=== PATIENT | female | born 1940 | race Caucasian/White ===

== ENCOUNTER 2021-08-17 14:53 | Inpatient (IN) | payer MEDICARE ==
[~2021-08-17] VITALS: Ht 167.6 cm; Wt 2.3 kg
--- NOTE | ~2021-08-17 | PROC ---
[address] [address] PROCEDURE REPORT Name: IGOR RAMOS Room: [address] IN M.R.#: [id number] Admission: 08/17/21 Attend Phys: Wendy Carroll Discharge: 08/24/21 Date of : 42 Report #: [id number] THIS REPORT FOR: cc: Daisy Espinoza MD, Constance M. MD [facility],Medical Records Staff ~ For GI report, please see the Provation report in Perceptive 7 content. By: 0646Medical Records Staff [facility] /JJ
[~2021-08-17 14:53] MED LIST: ASPIR 8181 MG PO; LASIX 40 MG TAB40 M1 PO; LIPITOR20 MG PO; MACROBID 100 M100 M1 PO; OMEGA 3 1,0001 EACH PO; PREDNISONE 10 M10 MG PO; PROAIR HFA8.5 GM IH; PYRIDIUM200 MG PO; SYNTHROID; SYNTHROID125 MC1 PO; VENTOLIN17 GM INH; VERAPAMIL ER240 M1 PO; ZPAK PO; [UNRECOGNIZED DRUG - OTHER]
[2021-08-17 14:59] VITALS: BP 150/70
[2021-08-17 18:01] LABS: ABSOLUTE BASOPHILS 0.1 thou/uL (0.0-0.2); ABSOLUTE EOSINOPHILS 0.1 thou/uL (0.0-0.7); ABSOLUTE LYMPHOCYTES 1.8 thou/uL (0.8-5.3); ABSOLUTE MONOCYTES 0.5 thou/uL (0.0-1.2); ABSOLUTE NEUTROPHILS 7.8 thou/uL (1.6-8.1); BASOPHILS 1.3 %; EOSINOPHILS 0.6 %; HEMATOCRIT 28.1 % (37.0-47.0); HEMOGLOBIN 9.4 gm/dL (12.0-15.0); LYMPHOCYTES 17.5 %; MCH 27.6 pg (26.0-34.0); MCHC 33.5 g/dL (28.0-37.0); MCV 82.3 fL (80.0-100.0); MONOCYTES 4.7 %; MPV 6.6 fl. (7.2-11.1); NUCLEATED RBCS 0 /100WBC; PLATELET COUNT* 272 thou/uL (150-400); POLYS 75.9 %; RBC 3.42 mil/uL (4.20-5.00); RDW-CV 15.8 % (10.5-14.5); WBC 10.3 thou/uL (4.0-11.0)
[2021-08-17 18:10] LABS: CALCIUM 7.5 mg/dL (8.5-10.1); CREATININE 0.8 mg/dL (0.6-1.3); POTASSIUM 3.6 mmol/L (3.5-5.1)
[2021-08-17 18:19] LABS: URINE BILIRUBIN NEGATIVE (Negative); URINE BLOOD NEGATIVE (Negative); URINE CLARITY CLEAR; URINE COLOR YELLOW; URINE GLUCOSE-RANDOM NEGATIVE (Negative); URINE KETONES 1+ (Negative); URINE LEUKOCYTES NEGATIVE (Negative); URINE NITRITE NEGATIVE (Negative); URINE PROTEIN 1+ (Negative); URINE UROBILINOGEN 0.2 E.U./dl (0.2-1.0)
[2021-08-17 18:23] LABS: ALBUMIN 2.2 g/dL (3.4-5.0); TOTAL BILIRUBIN 0.8 mg/dL (<0.1-1.0); TOTAL PROTEIN 6.1 g/dL (6.4-8.2)
[2021-08-17 22:50] VITALS: BP 141/60
[2021-08-17 22:57] VITALS: BP 144/67
[2021-08-17] MEDS ORDERED: XARELTO20 MG PO (23:23)
[2021-08-18 04:47] VITALS: BP 180/55
[2021-08-18 08:00] VITALS: BP 166/68
--- NOTE | 2021-08-18 11:09 | EKG ---
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
[2021-08-18 12:53] VITALS: BP 146/56
--- NOTE | 2021-08-18 13:28 | 2DMMODE ---
[place] [address] 2 D/M-MODE ECHOCARDIOGRAM Name: IGOR RAMOS Room: [address] IN .R.#: [id number] Admission: 08/17/21 Attend Phys: Sher Peterson Discharge: Date of : 42 Date of Service: 08/18/21 1327 Report #: [id number] THIS REPORT FOR: cc: Daisy Espinoza MD, Constance M. MD Blick, David R. MD [facility] ~ APPROVED REPORT Study performed: 08/18/2021 10:54:46 EXAM: Comprehensive 2D, Doppler, and color-flow Echocardiogram Patient Location: Bedside BSA: 1.97 HR: 95 bpm BP: 166/68 mmHg Other Information Study Quality: Good Indications Cardiomegaly Fatigue 2D Dimensions IVSd: 22.58 (7-11mm) LVOT Diam: 18.58 (18-24mm) LVDd: 37.12 mm PWd: 12.30 (7-11mm) Ascending Ao: 28.47 (22-36mm) LVDs: 29.78 (25-40mm) Aortic Root: 33.66 mm Volumes Left Atrial Volume (Systole) LA ESV Index: 25.70 mL/m2 Aortic Valve AoV Peak Fransico.: 3.50 m/s AO Peak Gr.: 48.88 mmHg LVOT Max P.43 mmHg AO Mean Gr.: 29.50 mmHg LVOT Mean P.44 mmHg LVOT Max V: 1.27 m/s AO V2 VTI: 81.79 cm LVOT Mean V: 0.86 m/s FABIAN (VTI): 0.84 cm2 LVOT V1 VTI: 25.40 [place] [address] 2 D/M-MODE ECHOCARDIOGRAM Name: RAMOSIGOR Alvarez Room: [address] IN ..#: [id number] Admission: 08/17/21 Attend Phys: Sher Peterson Discharge: Date of : 42 Date of Service: 08/18/21 1327 Report #: [id number] E/A Ratio: 0.94 MV Decel. Time: 207.19 ms MV E Max Fransico.: 1.19 m/s MV PHT: 60.09 ms MVA (PHT): 3.66 cm2 TDI E/Lateral E': 14.88 E/Medial E': 17.00 Medial E' Fransico.: 0.07 m/s Lateral E' Fransico.: 0.08 m/s Pulmonary Valve PV Peak Fransico.: 1.13 m/s PV Peak Gr.: 5.09 mmHg Tricuspid Valve RAP Estimate: 10.00 mmHg TR Peak Gr.: 39.77 mmHg RVSP: 49.77 mmHg PA Pressure: 49.77 mmHg Left Ventricle The left ventricle is normal size. There is normal LV segmental wall motion. Moderate concentric left ventricular hypertrophy. Left ventricular systolic function is normal. The left ventricular ejection fraction is within the normal range. LVEF is 55-60%. Grade I - abnormal relaxation pattern. Right Ventricle The right ventricle is normal size. The right ventricular systolic function is normal. Atria The left atrium size is normal. The right atrium size is normal. Aortic Valve Aortic valve is calcified. No aortic regurgitation is present. Moderate aortic stenosis. Mitral Valve There is mitral annular calcification. The mitral valve is normal in structure. Trace mitral regurgitation. No evidence of mitral valve stenosis. Tricuspid Valve The tricuspid valve is normal in structure. [place] [address] 2 D/M-MODE ECHOCARDIOGRAM Name: IGOR RAMOS Room: [address]#: [id number] Admission: 08/17/21 Attend Phys: Sher Peterson Discharge: Date of : 42 Date of Service: 08/18/21 1327 Report #: [id number] Pulmonic Valve The pulmonary valve is normal in structure. Trace pulmonic regurgitation. Great Vessels The aortic root is normal in size. The IVC is dilated. Pericardium There is no pericardial effusion. <Conclusion> Moderate concentric left ventricular hypertrophy. LVEF is 55-60%. Moderate aortic stenosis. <ELECTRONICALLY SIGNED> By: Bc Tanner MD, FACC 08/18/211326 26 26 Bc Tanner MD, FACC /INF
[2021-08-18 17:30] VITALS: BP 120/48
[2021-08-18 21:45] VITALS: BP 129/64
[2021-08-19] VITALS (7 sets, daily range): BP systolic 128–149; BP diastolic 48–76
[2021-08-19 08:05] LABS: HEMATOCRIT 25.8 % (37.0-47.0); HEMOGLOBIN 8.7 gm/dL (12.0-15.0); MCH 27.5 pg (26.0-34.0); MCHC 33.7 g/dL (28.0-37.0); MCV 81.6 fL (80.0-100.0); MPV 6.9 fl. (7.2-11.1); RBC 3.16 mil/uL (4.20-5.00); WBC 7.7 thou/uL (4.0-11.0)
[2021-08-19 08:18] LABS: ALBUMIN 1.9 g/dL (3.4-5.0); CALCIUM 7.4 mg/dL (8.5-10.1); CREATININE 0.9 mg/dL (0.6-1.3); TOTAL BILIRUBIN 0.4 mg/dL (<0.1-1.0); TOTAL PROTEIN 5.7 g/dL (6.4-8.2)
[2021-08-19 08:21] LABS: POTASSIUM 2.9 mmol/L (3.5-5.1)
[2021-08-20 03:30] VITALS: BP 172/83
[2021-08-20 04:32] LABS: POTASSIUM 3.4 mmol/L (3.5-5.1)
[2021-08-20 08:00] VITALS: BP 156/78
[2021-08-20 12:00] VITALS: BP 140/68
[2021-08-20 16:00] VITALS: BP 133/65
[2021-08-20 18:43] LABS: INFLUENZA A ANTIGEN Negative (Negative); INFLUENZA B ANTIGEN Negative (Negative)
[2021-08-20 20:00] VITALS: BP 124/68
[2021-08-20 23:50] VITALS: BP 143/60
[2021-08-21 04:32] LABS: HEMATOCRIT 27.9 % (37.0-47.0); HEMOGLOBIN 9.3 gm/dL (12.0-15.0); MCH 27.2 pg (26.0-34.0); MCHC 33.2 g/dL (28.0-37.0); MPV 6.7 fl. (7.2-11.1); RBC 3.41 mil/uL (4.20-5.00); RDW-CV 15.7 % (10.5-14.5); WBC 7.6 thou/uL (4.0-11.0)
[2021-08-21 04:47] LABS: CALCIUM 8.2 mg/dL (8.5-10.1); MAGNESIUM 1.8 mg/dL (1.8-2.4); POTASSIUM 3.3 mmol/L (3.5-5.1)
[2021-08-21 05:47] VITALS: BP 150/61
[2021-08-21 08:00] VITALS: BP 151/73
[2021-08-21 11:39] LABS: % SATURATION 49 % (20-39); IRON 92 ug/dL (50-175)
[2021-08-21 12:10] VITALS: BP 122/56
[2021-08-21 16:28] VITALS: BP 115/59
[2021-08-21 20:00] VITALS: BP 126/62; BP 87/40
--- NOTE | 2021-08-21 20:07 | CON ---
[address] [address] CONSULTATION Name: IGOR RAMOS Room: [address] IN .R.#: [id number] Admission: 08/17/21 Attend Phys: Wendy Carroll Discharge: Date of : 42 Report #: [id number] THIS REPORT FOR: cc: Daisy Espinoza MD, Constance M. MD Vardakis, Gregory DO ~ cc: Daisy Espinoza MD DATE OF CONSULTATION: 08/21/2021 Please note at the time of this dictation, the patient was seen and physically examined by myself. REASON FOR CONSULTATION: Positive blood culture for Enterococcus faecalis and wanting to find the source. HISTORY OF PRESENT ILLNESS: This is a pleasant 80-year-old female who presented to the Emergency Room with having several days of general malaise and chills and some nausea in which she recently had a UTI and completed therapy for that. She states she has not had much of an appetite and she has been having loose stools along with nausea and vomiting. She states sometimes in the morning she will have some dry heaves. She denies any issues with acid reflux and need to take anything and when that occurs, she may take some Pepto-Bismol. She denies any bright red blood or any melanotic stool at this time. She states she did have EGD and colonoscopy, she believes at [facility] sometime ago. She does not recall her findings and we will need to get her records to further evaluate that. ALLERGIES: INCLUDE DEMEROL, CIPRO AND ACETAMINOPHEN. MEDICATIONS: From home include verapamil, Lipitor, Lasix, Synthroid, prednisone and Xarelto. PAST MEDICAL HISTORY: Radical neck melanoma, hypertension, hypothyroidism, history of a left leg DVT and on anticoagulant therapy, hyperlipidemia. PAST SURGICAL HISTORY: Radical neck, hysterectomy. FAMILY HISTORY: Negative for any GI or female cancers. SOCIAL HISTORY: Denies any alcohol, tobacco or illegal drug use. REVIEW OF SYSTEMS: Twelve-point review of systems is essentially negative except what [place] [address] CONSULTATION Name: IGOR RAMOS Room: [address] IN [facility]#: [id number] Admission: 08/17/21 Attend Phys: Wendy Carroll Discharge: Date of : 41 Report #: [id number] PHYSICAL EXAMINATION: VITAL SIGNS: Temperature 37.4, pulse 82, respirations 18, blood pressure 151/73. HEART: Regular rate and rhythm. LUNGS: Diminished, but clear. ABDOMEN: Soft, positive bowel sounds in all 4 quadrants with no masses or tenderness noted. LABORATORY DATA: Hemoglobin is 9.3, white count is 7.6, platelets 343. GFR is 53. CT of the abdomen and pelvis essentially negative for GI. IMPRESSION: 1. Positive blood cultures for Enterococcus faecalis. 2. Loose stools. 3. Anemia, chronic likely. 4. Anticoagulant therapy, Xarelto secondary to a left deep venous thrombosis in 2019. 5. Recent urinary tract infection treatment. 6. Chronic kidney disease. PLAN: 1. Obtain records from [facility]. 2. Labs, ferritin, B12, iron studies and a soluble transferrin receptor. 3. We will check with hospitalist in regards to possibly holding her Xarelto for endoscopic evaluation. 4. Further recommendations to be made once Dr. Hanson sees the patient later today. Thank you for allowing us to participate in this patient's care. Please do not hesitate to call with any questions regarding this consult. <ELECTRONICALLY SIGNED> By: Spike aHnson DO 08/21/212006 6 0929Spike Hanson DO /nt
[2021-08-22] VITALS (15 sets, daily range): BP systolic 128–169; BP diastolic 60–76
[2021-08-22 05:03] LABS: ALBUMIN 2.2 g/dL (3.4-5.0); CALCIUM 8.1 mg/dL (8.5-10.1); CREATININE 1.3 mg/dL (0.6-1.3); POTASSIUM 3.5 mmol/L (3.5-5.1); TOTAL BILIRUBIN 0.5 mg/dL (<0.1-1.0)
[2021-08-22 05:37] LABS: HEMATOCRIT 28.1 % (37.0-47.0); HEMOGLOBIN 9.3 gm/dL (12.0-15.0); MCH 27.1 pg (26.0-34.0); MCHC 32.9 g/dL (28.0-37.0); MCV 82.4 fL (80.0-100.0); MPV 7.2 fl. (7.2-11.1); NUCLEATED RBCS 0 /100WBC; PLATELET COUNT* 397 thou/uL (150-400); RBC 3.41 mil/uL (4.20-5.00); RDW-CV 16.3 % (10.5-14.5); WBC 9.9 thou/uL (4.0-11.0)
[2021-08-22 07:18] LABS: ESR (SEDRATE) 44 mm/hr (0-30)
[2021-08-22 07:21] LABS: ABSOLUTE LYMPHOCYTES 1.3 thou/uL (0.8-5.3); ABSOLUTE MONOCYTES 0.6 thou/uL (0.0-1.2); PLATELET ESTIMATE ADEQUATE
[2021-08-22 07:22] LABS: ANISOCYTOSIS 1+; POIKILOCYTOSIS 1+
--- NOTE | 2021-08-22 16:04 | TEE ---
[place] [address] TRANSESOPHAGEAL ECHOCARDIOGRAM Name: IGOR RAMOS Room: [address] IN [facility]#: [id number] Admission: 08/17/21 Attend Phys: Sher Peterson Discharge: Date of : 42 Date of Service: 08/22/21 1604 Report #: [id number] THIS REPORT FOR: cc: Daisy Espinoza MD, Constance M. MD Liston, Michael J. MD [facility] ~ ADDENDUM APPROVED REPORT Study performed: 08/22/2021 10:23:25 EXAM: Comprehensive 2D, Doppler, and color-flow Echocardiogram Patient Location: In-Patient Room #: [employer] Status: routine BSA: 1.97 HR: 83 bpm BP: 166/76 mmHg Rhythm: NSR Other Information Study Quality: Good Indications BACTEREMIA Echo Enhancing Agent Indication: Rule out Shunt Agent(s) / Amount(s) Used: Agitated Saline 10 cc Procedure After obtaining informed consent, patient underwent transesophageal echo in the [employer]. Type of Sedation : Conscious Sedation Sedation was administered by Zee Ghosh RN. Sedation start time: 1025 Case end Time: 1035 Sedation was achieved intravenously with: Versed (3) Fentanyl (75) Transesophageal probe was inserted and advanced into esophagus without difficulty by Jose Melissa MD, [facility]. Echo enhancement indication: R/O Septal defect. Echo enhancement agent administered: Agitated Saline The AGGIE was performed without complications. Throughout the procedure, the blood pressure, pulse oximetry, [place] [address] TRANSESOPHAGEAL ECHOCARDIOGRAM Name: IGOR RAMOS Room: [address]#: [id number] Admission: 08/17/21 Attend Phys: Sher Peterson Discharge: Date of : 42 Date of Service: 08/22/21 1604 Report #: [id number] rhythm, and rate were monitored. The patient tolerated the procedure without adverse effects. Recovery from conscious sedation was uneventful and vital signs were stable. Left Ventricle The left ventricle is normal size. There is normal LV segmental wall motion. There is normal left ventricular wall thickness. Left ventricular systolic function is normal. LVEF is 55-60%. Right Ventricle The right ventricle is normal size. The right ventricular systolic function is normal. Atria The left atrium size is normal. No thrombus is visualized in the left atrium or appendage. The interatrial septum is intact with no evidence for an atrial septal defect. The right atrium size is normal. Aortic Valve Moderate aortic valve sclerosis. No aortic regurgitation is present. The aortic valve appears at least mildly stenotic. Mitral Valve The mitral valve is normal in structure. Mild mitral regurgitation. No evidence of mitral valve stenosis. Tricuspid Valve Tricuspid valve is not well visualized. Pulmonic Valve Pulmonic valve is not well visualized. Great Vessels The aortic root is normal in size. Pericardium There is no pericardial effusion. <Conclusion> The left ventricle is normal size. There is normal left ventricular wall thickness. Left ventricular systolic function is normal. LVEF is 55-60%. There is normal [place] [address] TRANSESOPHAGEAL ECHOCARDIOGRAM Name: IGOR RAMOS Room: [address] IN [facility].#: [id number] Admission: 08/17/21 Attend Phys: Sher Peterson Discharge: Date of : 42 Date of Service: 08/22/211603 Report #: [id number] Moderate aortic valve sclerosis. The aortic valve appears at least mildly stenotic. Mild mitral regurgitation. The interatrial septum is intact with no evidence for an atrial septal defect. There is no evidence of mitral or aortic valvular vegetations. <ELECTRONICALLY SIGNED> By: Jose Melissa MD, FACC 08/22/211603 03 03 Jose Melissa MD, FACC /INF
[2021-08-23 07:40] VITALS: BP 170/75
[2021-08-23 13:33] VITALS: BP 120/57
[2021-08-23 16:00] VITALS: BP 127/54
[2021-08-23 20:00] VITALS: BP 134/72
[2021-08-23 23:30] VITALS: BP 144/65
[2021-08-24 09:17] VITALS: BP 157/55
[2021-08-24 12:00] VITALS: BP 133/55
[2021-08-24 14:00] VITALS: BP 133/55
[2021-08-24 16:58] LABS: ABSOLUTE BASOPHILS 0.1 thou/uL (0.0-0.2); ABSOLUTE LYMPHOCYTES 2.5 thou/uL (0.8-5.3); ABSOLUTE MONOCYTES 0.4 thou/uL (0.0-1.2); ABSOLUTE NEUTROPHILS 7.8 thou/uL (1.6-8.1); BASOPHILS 0.6 %; EOSINOPHILS 0.1 %; HEMATOCRIT 30.7 % (37.0-47.0); HEMOGLOBIN 10.2 gm/dL (12.0-15.0); MCH 27.4 pg (26.0-34.0); MCHC 33.3 g/dL (28.0-37.0); MCV 82.2 fL (80.0-100.0); MONOCYTES 3.6 %; MPV 6.7 fl. (7.2-11.1); NUCLEATED RBCS 0 /100WBC; PLATELET COUNT* 451 thou/uL (150-400); POLYS 72.7 %; RBC 3.73 mil/uL (4.20-5.00); RDW-CV 16.4 % (10.5-14.5); WBC 10.8 thou/uL (4.0-11.0)
[2021-08-24 17:14] LABS: ALBUMIN 2.4 g/dL (3.4-5.0); CALCIUM 8.1 mg/dL (8.5-10.1); CREATININE 1.4 mg/dL (0.6-1.3); POTASSIUM 3.6 mmol/L (3.5-5.1); TOTAL BILIRUBIN 0.4 mg/dL (<0.1-1.0); TOTAL PROTEIN 6.3 g/dL (6.4-8.2)
[2021-08-24 17:37] VITALS: BP 133/55
--- NOTE | 2021-08-28 14:06 | PATH ---
[address] [address] PATHOLOGY RPT PROCEDURE Name: IGOR RAMOS Room: [address] IN .R.#: [id number] Admission: 08/17/21 Date of : 42 Discharge: 08/24/21 Report #: [id number] Path Case #: [id number] [facility] Accession Number: [id number] . 01 Material submitted: . PART A: small bowel - SMALL BOWEL BIOPSIES- ANEMIA PART B: colon - POLYP- PROXIMAL ASCENDING COLON. Modifiers: proximal, ascending PART C: colon - PROXIMAL TRANSVERSE COLON POLYPS. Modifiers: proximal, transverse PART D: colon - MID TRANSVERSE COLON POLYPS. Modifiers: mid, transverse PART E: colon - DISTAL TRANSVERSE COLON POLYPS. Modifiers: distal, transverse PART F: sigmoid colon - SIGMOID POLYP . 01 Clinical history: . EGD AND COLONOSCOPY FEVER, [place], ELEVATED TROPONIN . 02 Diagnosis: A. Small bowel biopsies: - Normal small intestinal mucosa. . B. Proximal ascending colon polyp: - Tubular adenoma, negative for high-grade dysplasia. . C. Proximal transverse colon polyps: - Multiple tubular adenomas, negative for high-grade dysplasia. . D. Mid transverse colon polyps: - Two tubular adenomas, negative for high-grade dysplasia. . E. Distal transverse colon polyps: - Two tubular adenomas, negative for high-grade dysplasia. . F. Sigmoid polyp: - Tubular adenoma, negative for high-grade dysplasia. . (JOSIAS:shilo; 08/25/2021) MBR 08/25/2021 1246 Local . 02 Electronically signed: . Brandon Balderas MD, Pathologist NPI- [id number] . 01 Gross description: . A. The specimen is submitted in formalin, labeled "Igor Ramos, small bowel biopsies-anemia". Received are 3 segments of [place] [address] PATHOLOGY RPT PROCEDURE Name: IGOR RAMOS Alvarez Room: [address]#: [id number] Admission: 08/17/21 Date of : 41 Discharge: 08/24/21 Report #: [id number] Path Case #: [id number] in size from 0.3 to 0.4 cm in maximum dimensions. The specimen is submitted entirely in cassette A1. . B. The specimen is submitted in formalin, labeled "Igor Ramos, polyp-proximal ascending colon". Received are 3 segments of pale mack tissue ranging in size from 0.2 to 0.4 cm in maximum dimensions. The specimen is submitted entirely in cassette B1. . C. The specimen is submitted in formalin, labeled "Igor Ramos, proximal transverse colon polyps". Received are multiple segments of pale mack tissue ranging in size from 0.2 to 0.5 cm in maximum dimensions. The specimen is submitted entirely in cassette C1. . D. The specimen is submitted in formalin, labeled "Igor Ramos, mid transverse colon polyps". Received are 2 segments of pale mack tissue measuring 0.3 and 0.5 cm in maximum dimensions. The specimen is submitted entirely in cassette D1. . E. The specimen is submitted in formalin, labeled "Igor Ramos, distal transverse colon polyps". Received are 2 segments of pale mack tissue measuring 0.4 and 0.7 cm in maximum dimensions. The surgical margin of the largest segment is inked and the specimen is bisected. The specimen is submitted entirely in cassette E1. . F. The specimen is received in formalin, labeled "Igor Ramos, sigmoid polyp". Received is a single segment of pale mack, polypoid tissue measuring 0.7 cm in maximum dimensions. The surgical margin is inked. The specimen is bisected and submitted entirely in cassette F1. ([facility]; 08/24/2021) NRI/NRI 08/24/2021 [facility] Local . 02 Pathologist provided ICD-10: D12.2, D12.3, D12.5 . 02 CPT . 388124, 396443, 446956, 110369, 766994, 394145 Specimen Comment: A courtesy copy of this report has been sent to [phone] Specimen Comment: [phone], Specimen Comment: Report sent to , DR LYNCH / DR HANSEN Specimen Comment: A duplicate report has been generated due to demographic updates. Performed at: [address], [place], [place] [id number] MD Juan Pablo Martinez MD Phone: [phone] Performed at: 02 [facility] [address], [place], [place] [id number] [place] [address] PATHOLOGY RPT PROCEDURE Name: IGOR RAMOS Room: [address] IN M.R.#: [id number] Admission: 08/17/21 Date of : 42 Discharge: 08/24/21 Report #: [id number] Path Case #: [id number] MD Brandon Balderas MD Phone: [phone]
== END 2021-08-24 19:14 | disposition home health service (06) | DRG 872 ==
LOC: M.ERS 14:53 → M.TBA-ER 21:05 → M.2W 21:05
PROVIDERS: Emergency Medicine; Internal Medicine; Internal Medicine Gastroenterology; Nurse Practitioner Adult Health; ADMIT Internal Medicine; ATTEND Internal Medicine
DX: A41.81 Sepsis due to Enterococcus (principal); E44.1 Mild protein-calorie malnutrition; Z68.1 Body mass index [BMI] 19.9 or less, adult; I50.32 Chronic diastolic (congestive) heart failure; N17.9 Acute kidney failure, unspecified; I13.0 Hypertensive heart and chronic kidney disease with heart failure and stage 1 through stage 4 chronic kidney disease, or unspecified chronic kidney disease; E89.0 Postprocedural hypothyroidism; E78.5 Hyperlipidemia, unspecified; D64.9 Anemia, unspecified; N18.9 Chronic kidney disease, unspecified; K44.9 Diaphragmatic hernia without obstruction or gangrene; K63.5 Polyp of colon; Z90.710 Acquired absence of both cervix and uterus; Z88.1 Allergy status to other antibiotic agents; Z88.8 Allergy status to other drugs, medicaments and biological substances; Z86.718 Personal history of other venous thrombosis and embolism; Z79.01 Long term (current) use of anticoagulants; Z20.822 Contact with and (suspected) exposure to COVID-19

== ENCOUNTER 2021-11-05 14:20 | Inpatient (IN) | payer MEDICARE ==
[~2021-11-05] VITALS: Ht 170.2 cm; Wt 78.6 kg
--- NOTE | ~2021-11-05 | CON ---
[address] [address] CONSULTATION Name: IGOR RAMOS Room: [place] [address] ADM IN .R.#: [id number] Admission: 11/05/21 Attend Phys: Helena Rubalcava Discharge: Date of : 41 Report #: [id number] THIS REPORT FOR: cc: Daisy Espinoza MD, Constance M. MD Namin, Farid M. MD ~ DATE OF CONSULTATION: 11/06/2021 REQUESTING PHYSICIAN: Dr. Jasmin Lee. REASON FOR CONSULTATION: Weakness and anemia. HISTORY OF PRESENT ILLNESS: This is a 80-year-old female with history of endoscopic evaluation by Dr. Hanson back in 07/2020. The patient reports that she has been very weak and had decreased appetite, which prompted her to come to the hospital. Upon her ER visit, she was found to have hemoglobin of 6.9. Her baseline hemoglobin from July was 9. She has received 1 unit of packed RBC and her hemoglobin is 7.3. The patient also had CT of abdomen and pelvis, which showed trace of left upper pelvic free fluid and trace of fluid in the paracolic gutter bilaterally. There is mild bibasilar pulmonary atelectasis and dense aortic valve calcification noted in this study. PAST MEDICAL HISTORY: Significant for a history of UTI and sepsis. He has history of melanoma, thyroidectomy, hypertension, dyslipidemia. ALLERGIES: SIGNIFICANT TO TYLENOL, CIPROFLOXACIN, AND MEPERIDINE. MEDICATIONS: Please refer to PEGGY. PHYSICAL EXAMINATION: VITAL SIGNS: Reveals blood pressure of 120/77, respirations 16, pulse 89, temperature 36.8. LUNGS: Clear. CARDIOVASCULAR: Regular. ABDOMEN: Soft, nontender, nondistended. Bowel sounds are positive. NEUROLOGIC: The patient is alert and oriented x3. There is no focal neurologic deficit. LABORATORY DATA: Reveal WBC of 9.1, hemoglobin of 7.3, platelet is 338. Sodium 130, potassium 5.2, BUN is 46, creatinine 4.6, glucose 176. IMAGING: As discussed above. ASSESSMENT AND PLAN: The patient with recent endoscopic evaluation found to be anemic and has dropped her hemoglobin by 3 grams in 3 months[place] [address] CONSULTATION Name: IGOR RAMOS Room: [address] IN [facility]#: [id number] Admission: 11/05/21 Attend Phys: Helena Rubalcava Discharge: Date of : 41 Report #: [id number] iron studies and check B12 and folic acid. If there is evidence of iron deficiency, we will consider capsule endoscopy. We will continue monitoring her H and H and make further recommendation. By: 1659 2004Kathy Cortez MD /nt
[~2021-11-05 14:20] MED LIST changes: +XARELTO20 MG PO
[2021-11-05 14:40] VITALS: BP 140/93
[2021-11-05 18:16] LABS: HEMATOCRIT 20.8 % (37.0-47.0); MCH 25.3 pg (26.0-34.0); MCHC 33.1 g/dL (28.0-37.0); MCV 76.3 fL (80.0-100.0); MPV 6.2 fl. (7.2-11.1); NUCLEATED RBCS 0 /100WBC; PLATELET COUNT* 460 thou/uL (150-400); RBC 2.72 mil/uL (4.20-5.00); RDW-CV 18.8 % (10.5-14.5); WBC 13.3 thou/uL (4.0-11.0)
[2021-11-05 18:21] LABS: CALCIUM 7.6 mg/dL (8.5-10.1); CREATININE 4.9 mg/dL (0.6-1.3)
[2021-11-05 18:23] LABS: HEMOGLOBIN 6.9 gm/dL (12.0-15.0); POTASSIUM 6.1 mmol/L (3.5-5.1)
[2021-11-05 18:32] LABS: TOTAL BILIRUBIN 0.7 mg/dL (<0.1-1.0); TOTAL PROTEIN 6.7 g/dL (6.4-8.2)
[2021-11-05 18:39] LABS: URINE BILIRUBIN NEGATIVE (Negative); URINE BLOOD 3+ (Negative); URINE CLARITY SL CLOUDY; URINE COLOR YELLOW; URINE GLUCOSE-RANDOM NEGATIVE (Negative); URINE KETONES TRACE (Negative); URINE NITRITE-REFLEX NEGATIVE (Negative); URINE PROTEIN 2+ (Negative); URINE SPECIFIC GRAVITY 1.015 (1.005-1.030); URINE UROBILINOGEN 0.2 E.U./dl (0.2-1.0)
[2021-11-05 18:42] LABS: URINE LEUKOCYTES-REFLEX 2+ (Negative)
[2021-11-05 18:47] LABS: BACTERIA-REFLEX >30 Many /HPF (None Seen); HYALINE CASTS 0-3 Few /LPF (None Seen); URINE WBC-REFLEX >25 Many /HPF (0-5)
[2021-11-05 18:48] LABS: CRYSTALS None Seen /LPF (None Seen); MUCUS None Seen strn/LPF (None Seen); SQUAMOUS 0-3 Few /LPF (0-3); URINE RBC 3-10 Few /HPF (0-2); YEAST-REFLEX Present (None Seen)
[2021-11-05 18:55] LABS: ABSOLUTE LYMPHOCYTES 0.7 thou/uL (0.8-5.3); ABSOLUTE MONOCYTES 0.7 thou/uL (0.0-1.2); PLATELET ESTIMATE ADEQUATE
[2021-11-05 18:57] LABS: ANISOCYTOSIS 1+; HYPOCHROMASIA 1+; MICROCYTES 1+
[2021-11-05 19:01] LABS: INFLUENZA A ANTIGEN Negative (Negative); INFLUENZA B ANTIGEN Negative (Negative)
[2021-11-05 21:21] LABS: CALCIUM 6.6 mg/dL (8.5-10.1); CREATININE 4.6 mg/dL (0.6-1.3); POTASSIUM 5.2 mmol/L (3.5-5.1)
[2021-11-05 23:19] VITALS: BP 132/62
[2021-11-06 04:00] VITALS: BP 126/59
[2021-11-06 06:43] LABS: HEMATOCRIT 22.2 % (37.0-47.0); HEMOGLOBIN 7.3 gm/dL (12.0-15.0); MCH 26.3 pg (26.0-34.0); MCHC 32.9 g/dL (28.0-37.0); MCV 79.8 fL (80.0-100.0); RBC 2.78 mil/uL (4.20-5.00); RDW-CV 18.9 % (10.5-14.5); WBC 9.1 thou/uL (4.0-11.0)
[2021-11-06 08:00] VITALS: BP 120/77
--- NOTE | 2021-11-06 12:43 | NUR ---
Pt is admitted to the hospital on 11/05/21 with Anemia and Acute Renal Failure. Called spouse - Edwin at: [phone] to complete assessment. Pt lives with spouse in a house with no steps to enter. Pt does have a roller walker. Pt is currently active with [facility] for nursing - called and confirmed this and faxed them clinicals. Pt fills her prescriptions at the [address], and has seen her PCP with in the last 3 months. Pt was previously independent in ADL's and has no hx of SNF. In team meeting - doctor was to order therapies to see if pt can return home with HH or will need SNF. CM to continue to follow for discharge planning.
--- NOTE | 2021-11-06 13:19 | EKG ---
[place] [address] ELECTROCARDIOGRAM REPORT Name: IGOR RAMOS Room: [place] [address] ADM IN [facility]#: [id number] Admission: 11/05/21 Attend Phys: Jasmin Lee Discharge: Date of : 42 Date of Service: 11/05/21 180 Report #: [id number] THIS REPORT FOR: //name// [facility] ED Test Date: 2021-11-05 Test Time: 18:06:07 Pat Name: IGOR RAMOS Department: Room: [facility] Gender: F [employer]: : 1940 Requested By: Jean-Claude Lizama Order Number: [id number] MD: Everardo Randle Measurements Intervals [place] Rate: 93 P: 55 MD: 201 QRS: -30 QRSD: 84 T: 33 QT: 376 QTc: 468 Interpretive Statements Sinus rhythm Probable left atrial enlargement Left axis deviation Abnormal R-wave progression, early transition Compared to ECG 08/17/2021 17:31:40 No significant changes Electronically Signed On 11-06-2021 13:18:54 PATIENT ACCOUNTING REPRESENTATIVE by Everardo Randle [email or web address] <ELECTRONICALLY SIGNED> By: Everardo Randle MD, [facility] 11/06/21 1318 1806 1806 Everardo Randle MD, [facility] /EPI
[2021-11-06 16:00] VITALS: BP 120/77
[2021-11-07] VITALS (9 sets, daily range): BP systolic 121–153; BP diastolic 61–74
--- NOTE | 2021-11-07 01:09 | NUR ---
PT ARRIVED TO FLOOR AT 0045 BY BED. ASSUMED CARE AND RECEIVED REPORT FROM HAND SEWER. PT IS ALERT AND ORIENTED. FALL PRECAUTIONS IN PLACE. BED ALARM ON. IV INFUSING 70ML/HR OF NS AT THIS TIME. CARDIAC MONITORING IMPLEMENTED AND TRACING SINUS RHYTHM. SCD'S ON. NOTED AREAS OF DRY/CRACKED/RED SKIN ON B/L SHINS AND ANKLES. MONTESINOS TO DEPENDENT DRAINAGE, STAT LOCK IN PLACE. PT VOICES NO COMPLAINTS AT THIS TIME, JUST REPORTS BEING COLD AND TIRED. BLANKETS PROVIDED AND IS NOW RESTING COMFORTABLY. CALL LIGHT WITHIN REACH AND VERBALIZED UNDERSTANDING OF USE. WILL CONTINUE TO MONITOR.
[2021-11-07 05:13] LABS: ABSOLUTE BASOPHILS 0.1 thou/uL (0.0-0.2); ABSOLUTE EOSINOPHILS 0.2 thou/uL (0.0-0.7); ABSOLUTE LYMPHOCYTES 1.2 thou/uL (0.8-5.3); ABSOLUTE MONOCYTES 0.9 thou/uL (0.0-1.2); ABSOLUTE NEUTROPHILS 6.5 thou/uL (1.6-8.1); BASOPHILS 0.6 %; EOSINOPHILS 2.3 %; HEMATOCRIT 21.8 % (37.0-47.0); LYMPHOCYTES 13.9 %; MCHC 32.2 g/dL (28.0-37.0); MCV 80.7 fL (80.0-100.0); MONOCYTES 9.7 %; NUCLEATED RBCS 0 /100WBC; PLATELET COUNT* 361 thou/uL (150-400); POLYS 73.5 %; WBC 8.8 thou/uL (4.0-11.0)
[2021-11-07 05:29] LABS: CALCIUM 6.6 mg/dL (8.5-10.1); CREATININE 4.7 mg/dL (0.6-1.3); POTASSIUM 4.5 mmol/L (3.5-5.1)
--- NOTE | 2021-11-07 13:10 | NUR ---
PLAN OF CARE: PHYSICIAN INFORMS THAT THE PT WILL LIKELY NEED IV ABT'S AT D/C, WELL POSSIBLE SNF PLACEMENT. CM TO DISCUS THIS WITH THE PT AND HER SPOUSE. CM WILL REMAIN AVAILABLE TO ASSIST AND FOLLOW NEEDED.
[2021-11-08 02:24] VITALS: BP 162/64
[2021-11-08 04:45] LABS: HEMATOCRIT 22.5 % (37.0-47.0); HEMOGLOBIN 7.2 gm/dL (12.0-15.0); MCHC 32.2 g/dL (28.0-37.0); MCV 80.8 fL (80.0-100.0); MPV 6.1 fl. (7.2-11.1); NUCLEATED RBCS 0 /100WBC; PLATELET COUNT* 417 thou/uL (150-400); RBC 2.78 mil/uL (4.20-5.00); RDW-CV 18.9 % (10.5-14.5); WBC 10.2 thou/uL (4.0-11.0)
--- NOTE | 2021-11-08 05:02 | NUR ---
PT A&OX2 (SELF & TIME), CONFUSED ABOUT LOCATION AND SITUATION, VSS ON ROOM AIR, IV FLUIDS INFUSING ORDERED, URINARY CATHETER IN PLACE, REPOSITIONED Q2H. NO CO PAIN OR DISCOMFORT. PT SLEEPING WELL, WILL CONTINUE TO MONITOR.
[2021-11-08 05:35] LABS: ALBUMIN 1.5 g/dL (3.4-5.0); CALCIUM 6.9 mg/dL (8.5-10.1); CREATININE 4.5 mg/dL (0.6-1.3); POTASSIUM 4.2 mmol/L (3.5-5.1); TOTAL BILIRUBIN 0.2 mg/dL (<0.1-1.0); TOTAL PROTEIN 5.7 g/dL (6.4-8.2)
[2021-11-08 06:42] VITALS: BP 134/72
[2021-11-08 07:44] LABS: ABSOLUTE EOSINOPHILS 0.2 thou/uL (0.0-0.7); ABSOLUTE LYMPHOCYTES 1.2 thou/uL (0.8-5.3); ABSOLUTE MONOCYTES 0.5 thou/uL (0.0-1.2); ABSOLUTE NEUTROPHILS 8.3 thou/uL (1.6-8.1); METAMYELOCYTES 1 %; MYELOCYTES 3 %
[2021-11-08 07:45] LABS: ANISOCYTOSIS 1+; HYPOCHROMASIA 1+; PLATELET ESTIMATE ADEQUATE
[2021-11-08 08:47] VITALS: BP 168/72
[2021-11-08 11:08] LABS: % SATURATION 14 % (20-39); IRON 19 ug/dL (50-175)
[2021-11-08 11:52] VITALS: BP 164/75
--- NOTE | 2021-11-08 16:13 | NUR ---
PLAN OF CARE: CM SPOKE TO THE PT AND HER SPOUSE TO DISCUSS CM D/C PLANNING, AND POSSIBLE SNF PLACEMENT FOR THE PT. BOTH ARE IN AGREEMENT, AND PT'S SPOUSE INFORMS THAT HE IS OPEN TO HAVING SNF REFERRAL FAXED TO [facility] SINCE THEY RESIDE IN [place]. CM FAXED REFERRAL AND AWAITING RETURN CALL. CM WILL REMAIN AVAILABLE TO ASSIST AND FOLLOW NEEDED.
[2021-11-08 16:39] VITALS: BP 159/73
[2021-11-08 21:07] VITALS: BP 118/88
[2021-11-09] VITALS (15 sets, daily range): BP systolic 135–173; BP diastolic 64–93
[2021-11-09 04:05] LABS: HEMATOCRIT 21.6 % (37.0-47.0); MCH 26.4 pg (26.0-34.0); MCHC 32.4 g/dL (28.0-37.0); MCV 81.4 fL (80.0-100.0); MPV 5.8 fl. (7.2-11.1); RBC 2.66 mil/uL (4.20-5.00); RDW-CV 19.1 % (10.5-14.5); WBC 9.2 thou/uL (4.0-11.0)
[2021-11-09 04:28] LABS: CALCIUM 6.9 mg/dL (8.5-10.1); CREATININE 4.4 mg/dL (0.6-1.3); POTASSIUM 4.4 mmol/L (3.5-5.1)
--- NOTE | 2021-11-09 06:32 | NUR ---
PT LAB BLOOD GLUCOSE THIS MORNING WAS 64. PT IS NPO FOR POSSIBLE AGGIE. 12.5 GM D50 IVP ORDERED AND ADMINISTERED PER PROTOCOL. POC BLOOD GLUCOSE RECHECK AT 0616 IS 88.
--- NOTE | 2021-11-09 15:14 | NUR ---
Pt has been referred to SNF - as she will need 4 weeks of IV antibiotics (Ampicillan). Pt was referred to [facility]. Per doctor pt will be here through the weekend. Followed up on referral with [facility] in admissions. She is to speak with DON - as Ampicillan is typically given every 4 or 6 hours and is typically expensive. CM to continue to follow for discharge planning.
--- NOTE | 2021-11-09 17:14 | TEE ---
[place] [address] TRANSESOPHAGEAL ECHOCARDIOGRAM Name: IGOR RAMOS Room: [address] IN [facility]#: [id number] Admission: 11/05/21 Attend Phys: Jasmin Lee Discharge: Date of : 42 Date of Service: 11/09/21 1714 Report #: [id number] THIS REPORT FOR: cc: Daisy Espinoza MD, Constance M. MD Liston, Michael J. MD [facility] ~ APPROVED REPORT Study performed: 11/09/2021 08:55:25 EXAM: Transesophageal Echocardiogram Patient Location: In-Patient Room #: [facility] Status: routine BSA: 1.90 HR: 96 bpm BP: 162/75 mmHg Rhythm: NSR Indications bacteremia Echo Enhancing Agent Indication: Rule out Shunt Agent(s) / Amount(s) Used: Agitated Saline 10 cc Procedure After obtaining informed consent, patient underwent transesophageal echo in the [employer]. Type of Sedation : Conscious Sedation Sedation was administered by Zee Ghosh RN. Sedation start time: 902 Case end Time: 914 Sedation was achieved intravenously with: Versed (3) Fentanyl (75) Transesophageal probe was inserted and advanced into esophagus without difficulty by Jose Melissa MD, FACC. Echo enhancement indication: R/O Septal defect. Echo enhancement agent administered: Agitated Saline The AGGIE was performed without complications. Throughout the procedure, the blood pressure, pulse oximetry, cardiac rhythm, and rate were monitored. The patient tolerated the procedure without adverse effects. Recovery from conscious sedation was uneventful and vital signs were stable. [address] [address] TRANSESOPHAGEAL ECHOCARDIOGRAM Name: IGOR RAMOS Room: [address] IN [facility]#: [id number] Admission: 11/05/21 Attend Phys: Jasmin Lee Discharge: Date of : 42 Date of Service: 11/09/21 1714 Report #: [id number] Left Ventricle The left ventricle is normal size. There is normal LV segmental wall motion. There is normal left ventricular wall thickness. Left ventricular systolic function is normal. LVEF is 55-60%. Right Ventricle The right ventricle is normal size. The right ventricular systolic function is normal. Atria The left atrium size is normal. No thrombus is visualized in the left atrium or appendage. The interatrial septum is intact with no evidence for an atrial septal defect. The right atrium size is normal. Aortic Valve Moderate aortic valve sclerosis. No aortic regurgitation is present. At least mild aortic stenosis Mitral Valve The mitral valve is normal in structure. Mild mitral regurgitation. No evidence of mitral valve stenosis. Tricuspid Valve Tricuspid valve is not well visualized. Pulmonic Valve Pulmonic valve is not well visualized. Great Vessels The aortic root is normal in size. Pericardium There is no pericardial effusion. <Conclusion> The left ventricle is normal size. There is normal left ventricular wall thickness. Left ventricular systolic function is normal. LVEF is 55-60%. The interatrial septum is intact with no evidence for an atrial septal defect. No thrombus is visualized in the left atrium or appendage. Moderate aortic valve sclerosis. At least mild [place] [address] TRANSESOPHAGEAL ECHOCARDIOGRAM Name: IGOR RAMOS Alvarez Room: [address] IN [facility].#: [id number] Admission: 11/05/21 Attend Phys: Jasmin Lee Discharge: Date of : 42 Date of Service: 11/09/211713 Report #: [id number] Mild mitral regurgitation. No evidence of valvular vegetation seen <ELECTRONICALLY SIGNED> By: Jose Melissa MD, FACC 11/09/211713 13 13 Jose Melissa MD, FACC /INF
[2021-11-10 03:05] VITALS: BP 116/98
[2021-11-10 04:15] LABS: HEMATOCRIT 22.2 % (37.0-47.0); HEMOGLOBIN 7.1 gm/dL (12.0-15.0); MCH 26.1 pg (26.0-34.0); MCHC 31.9 g/dL (28.0-37.0); MCV 81.6 fL (80.0-100.0); MPV 5.9 fl. (7.2-11.1); RBC 2.72 mil/uL (4.20-5.00)
[2021-11-10 04:35] LABS: ALBUMIN 1.6 g/dL (3.4-5.0); CALCIUM 7.1 mg/dL (8.5-10.1); CREATININE 4.8 mg/dL (0.6-1.3); MAGNESIUM 1.7 mg/dL (1.8-2.4); POTASSIUM 4.1 mmol/L (3.5-5.1); TOTAL BILIRUBIN 0.2 mg/dL (<0.1-1.0); TOTAL PROTEIN 5.5 g/dL (6.4-8.2)
--- NOTE | 2021-11-10 05:03 | NUR ---
PT A&O, FORGETFUL AND CONFUSED AT TIMES. VSS ON ROOM AIR, IV FLUIDS INFUSING ORDERED, URINARY CATHETER IN PLACE, REPOSITIONED Q2H. NO CO PAIN OR DISCOMFORT. PT SLEEPING IN BED, WILL CONTINUE TO MONITOR.
[2021-11-10 06:51] VITALS: BP 163/75
[2021-11-10 09:00] VITALS: BP 148/72
[2021-11-10 12:44] VITALS: BP 124/83
--- NOTE | 2021-11-10 16:37 | NUR ---
Pt has been referred to [facility] for SNF - as pt needs PT/OT and 4 weeks of IV Ampicillan. Admissions - [facility] was ill today and their was no one to look at referral. Yesterday [facility] had stated they would have to cost out antibiotics before they could say they could accept. Received phone call from spouse - Edwin who was agitated that we didn't have an accepting facility. Discussed pt would not discharge till early next week - as blood cultures had to come back negative before they would place a PICC line and that we were having issues finding a SNF that had beds open. Spouse is questioning if [facility] is a nice facility as their ratings are not good. Offered to referral pt to another facility and spouse requested referral be made to [facility] in [place], [place]. and . CM to continue to follow for discharge planning.
[2021-11-10 18:13] LABS: HEMATOCRIT 23.8 % (37.0-47.0); HEMOGLOBIN 7.6 gm/dL (12.0-15.0); MCH 25.9 pg (26.0-34.0); MCHC 31.8 g/dL (28.0-37.0); MCV 81.6 fL (80.0-100.0); MPV 5.8 fl. (7.2-11.1); NUCLEATED RBCS 0 /100WBC; PLATELET COUNT* 475 thou/uL (150-400); RBC 2.92 mil/uL (4.20-5.00); RDW-CV 19.3 % (10.5-14.5); WBC 10.9 thou/uL (4.0-11.0)
[2021-11-10 18:46] LABS: ABSOLUTE EOSINOPHILS 0.1 thou/uL (0.0-0.7); ABSOLUTE LYMPHOCYTES 0.9 thou/uL (0.8-5.3); ABSOLUTE MONOCYTES 0.9 thou/uL (0.0-1.2); PLATELET ESTIMATE INCREASED
[2021-11-10 19:02] VITALS: BP 185/85
[2021-11-10 20:00] VITALS: BP 168/82
--- NOTE | 2021-11-11 03:49 | NUR ---
PT HAS SLEPT WELL TONIGHT. WHEN AWAKE BODY IS CONSTANTLY MOVING INCLUDING HER HEAD MOVING. INCONT OF LG AMT OF LOOSE STOOL. ASSISTED WITH REPOSITIONING. TELEMETRY ON SHOWING SR.
[2021-11-11 05:01] LABS: HEMOGLOBIN 7.3 gm/dL (12.0-15.0); MCHC 31.9 g/dL (28.0-37.0); MCV 81.4 fL (80.0-100.0); MPV 5.8 fl. (7.2-11.1); RBC 2.82 mil/uL (4.20-5.00); RDW-CV 19.1 % (10.5-14.5); WBC 9.2 thou/uL (4.0-11.0)
[2021-11-11 05:21] LABS: ALBUMIN 1.6 g/dL (3.4-5.0); CALCIUM 7.2 mg/dL (8.5-10.1); CREATININE 4.6 mg/dL (0.6-1.3); MAGNESIUM 1.9 mg/dL (1.8-2.4); POTASSIUM 4.1 mmol/L (3.5-5.1); TOTAL BILIRUBIN 0.2 mg/dL (<0.1-1.0); TOTAL PROTEIN 5.7 g/dL (6.4-8.2)
[2021-11-11 06:08] VITALS: BP 177/80
[2021-11-11 09:00] VITALS: BP 119/77
[2021-11-11 12:00] VITALS: BP 173/75
--- NOTE | 2021-11-11 14:12 | NUR ---
Received call from pt's spouse - Edwin wanting to discuss SNF again. He is frustrated that this emergency planner didn't hear back from [facility] ([facility] in admissions was ill last Saturday), and a referral was faxed late in the day to [facility] in [place], [place] on 11/10/21. . He is also frustrated that he has a $1000.00 worth of Ampicillan at home and he will not be able to bring it to SNF ( as it has already been dispensed by [facility] ([facility]) as it would appear they tried to manage IV antibiotics at home. Discussed we would follow up with both facilities first thing in the AM on Saturday and get back with him. We are waiting for a negative culture to place PICC line and pt will need 4 weeks of IV Ampicillan. CM to continue to follow for discharge planning.
[2021-11-11 16:00] VITALS: BP 180/77
[2021-11-11 18:06] LABS: COMPLEMENT-C4 24 mg/dL (12-38); IgA 276 mg/dL (64-422); IgG 807 mg/dL (586-1602); IgM 69 mg/dL (26-217)
--- NOTE | 2021-11-11 19:04 | NUR ---
ALERT BUT PLEASANTLY CONFUSED. CONTINUES ON IVF. HAS MONTESINOS CATHETER PATENT WITH CLEAR YELLOW URINE. NEEDS HELP WITH MEAL. INCONTINENT OF BOWELS. TAKES PILLS OK. TURN EVERY [address]
[2021-11-11 20:18] VITALS: BP 180/81
[2021-11-12] VITALS (8 sets, daily range): BP systolic 121–178; BP diastolic 51–84
--- NOTE | 2021-11-12 04:51 | NUR ---
PATIENT ALERT AND ORIENTED X 2-3, FORGETFUL/CONFUSED. INTERACTS WITH STAFF AND CONVERSATIONAL. TURNED Q2H. RED ADAM-AREA CLEANSED AND MOISTURE BARRIER UTILIZED. URINE OUTPUT PER MONTESINOS CATHETER. INCONT SMALL LOOSE BM. FACE APPEARS PUFFY WITH WATERY EYES. VITAL SIGNS STABLE WITH HYPERTENSION ON ROOM AIR. MEDS/IVF'S PER ORDER. FALL PRECAUTIONS IN PLACE. CONTINUE TO MONITOR.
[2021-11-12 04:52] LABS: CALCIUM 7.1 mg/dL (8.5-10.1); CREATININE 4.4 mg/dL (0.6-1.3)
[2021-11-12 16:25] LABS: MAGNESIUM 1.8 mg/dL (1.8-2.4); POTASSIUM 4.2 mmol/L (3.5-5.1)
--- NOTE | 2021-11-12 18:30 | NUR ---
UPDATE ON PT STATUS GIVEN TO DAUGHTER AT BEDSIDE.
[2021-11-13 02:30] VITALS: BP 181/82
--- NOTE | 2021-11-13 04:38 | NUR ---
PATIENT HAS REMAINED ORIENTED TO SELF AND AT TIMES PLACE AND SITUATION. NOTING INCREASE IN RESPIRATIONS AND CONTINUED WHEEZING. ALSO TRIGGERED POSITIVE SEPSIS SCREEN WITH PREVIOUS AM LAB. BP ELEVATED WITH PRN HYDRALAZINE PROVIDED. DR. POLANCO NOTIFIED OF ALL ABOVE. TO REASESS THIS AM WITH CURRENT LAB AND VITAL SIGNS. TURNED Q2H.INCONT BM'S X 2. FALL PRECAUTIONS IN PLACE. CONTINUE TO MONITOR.
[2021-11-13 05:10] LABS: HEMATOCRIT 23.9 % (37.0-47.0); HEMOGLOBIN 7.7 gm/dL (12.0-15.0); MCHC 32.1 g/dL (28.0-37.0); MPV 5.9 fl. (7.2-11.1); RBC 2.95 mil/uL (4.20-5.00); RDW-CV 19.4 % (10.5-14.5); WBC 12.9 thou/uL (4.0-11.0)
[2021-11-13 05:35] LABS: ALBUMIN 1.6 g/dL (3.4-5.0); CALCIUM 7.3 mg/dL (8.5-10.1); CREATININE 4.3 mg/dL (0.6-1.3); MAGNESIUM 1.7 mg/dL (1.8-2.4); POTASSIUM 3.8 mmol/L (3.5-5.1); TOTAL BILIRUBIN 0.4 mg/dL (<0.1-1.0); TOTAL PROTEIN 5.8 g/dL (6.4-8.2)
[2021-11-13 06:00] VITALS: BP 172/85
[2021-11-13 08:00] VITALS: BP 180/67
--- NOTE | 2021-11-13 08:54 | CON ---
[address] [address] CONSULTATION Name: IGOR RAMOS Room: [address] IN [facility].#: [id number] Admission: 11/05/21 Attend Phys: Helena Rubalcava Discharge: Date of : 42 Report #: [id number] THIS REPORT FOR: cc: Daisy Espinoza MD, Constance M. MD Vasudeva, Amita MD ~ DATE OF CONSULTATION: 11/06/2021 CARDIOLOGY CONSULTATION CONSULTING PHYSICIAN: ____. REASON FOR NEPHROLOGY CONSULTATION: Acute kidney injury. REASON FOR ADMISSION: Fever and weakness. HISTORY OF PRESENT ILLNESS: This is a 80-year-old female who came in with weakness and fever. She was found to have a UTI and her blood cultures are positive for gram-positive cocci. Her stool for occult blood was also positive. When she came in, her hemoglobin was 6.9 and she was transfused a unit of blood. She does take Lasix at home. Her baseline creatinine is around 0.9 back in July of last year and this time, she comes in with a creatinine of 4.9 with IV fluids, creatinine has come down to 4.6. She is feeling weak, but she is feeling better from when she came in. She is getting antibiotics for her infection. She does take Advil about 2 tablets every day. No history of any kidney stones. ALLERGIES: MEPERIDINE, CIPROFLOXACIN, ACETAMINOPHEN. REVIEW OF SYSTEMS: As mentioned in history of present illness and otherwise 10-point review of systems are negative. HOME MEDICATIONS: Include verapamil, Lipitor, Lasix 40 mg once a day, Synthroid, prednisone 10 mg a day, Advil two tablets every day. PAST MEDICAL HISTORY AND SURGICAL HISTORY: Includes melanoma, thyroidectomy, UTI, sepsis, hypertension, dyslipidemia, acute kidney injury. FAMILY HISTORY: Reviewed, but noncontributory in this 80-year-old female. PHYSICAL EXAMINATION: VITAL SIGNS: Blood pressure is 126/59, temperature is 36.8, pulse rate is 93, respiratory rate is 16, pulse ox 95% on 2 liters of oxygen via nasal cannula. GENERAL: The patient was drowsy, but easily arousable and she was alert, [place] [address] CONSULTATION Name: IGOR RAMOS Room: [address] IN [facility]#: [id number] Admission: 11/05/21 Attend Phys: Helena Rubalcava Discharge: Date of : 42 Report #: [id number] HEAD AND EYES: Atraumatic, normocephalic. Conjunctivae normal. EARS, NOSE, AND THROAT: Normal ears. Mucous membranes are dry. NECK: No JVD noted. CHEST: Bilaterally diminished breath sounds, but no crackles. CARDIOVASCULAR: S1, S2 normal. No murmurs or rubs. ABDOMEN: Soft, nondistended, nontender. LOWER EXTREMITIES: No lower extremity edema. NEUROLOGIC: Neurologic function is grossly intact. PSYCHIATRIC: Difficult to assess. LABORATORY DATA: Hemoglobin 7.3, which is up from 6.9 when she came in. Platelet count is 338. Sodium is 130, potassium is 5.2 and a BUN of 46, creatinine 4.6. Other labs are reviewed. IMAGING: Chest x-ray was reviewed. ASSESSMENT AND PLAN: 1. Acute kidney injury in the setting of volume depletion, NSAID use, GI bleed, bacteremia. Baseline creatinine is around 0.9. She comes in with a creatinine of 4.9 which is improving with fluids. UA showed evidence of a UTI. Does have microscopic hematuria, should be repeated once acute kidney injury gets better. She does not need an ultrasound at this point because she is improving with fluids. She does take Lasix at home which also contributed to volume depletion. 2. Acute respiratory failure, could be having underlying pneumonia. We will defer to primary team for management. 3. GI bleed, stool for occult blood positive. Came in with a hemoglobin of 6.9. Transfuse as per primary team, will defer to GI and primary team. 4. Urinary tract infection. We will defer to primary team for management. 5. Gram-positive cocci in blood. We will defer to primary team for management. 6. Hyperkalemia, improved with fluids in the setting of acute kidney injury. 7. Hyponatremia in the setting of volume depletion. 8. Hypertension. Blood pressures have been more or less stable. 9. Dyslipidemia. We will defer to primary team for management. PLAN: 1. CPK was reviewed, was only 222. So far improving with fluids, continue normal saline at 75 mL an hour. 2. Management for GI bleed, bacteremia as per primary team. 3. Hold any nephrotoxic agents, avoid IV contrast. Avoid hypotension. 4. Check morning labs. Thank you for the consultation. We will continue to follow with you. If kidney function starts declining again, we will check renal imaging. [address] [address] CONSULTATION Name: IGOR RAMOS Room: [address] [facility] IN .R.#: [id number] Admission: 11/05/21 Attend Phys: Helena Rubalcava Discharge: Date of : 42 Report #: [id number] Otherwise, no need right now. Discussed with the patient. <ELECTRONICALLY SIGNED> By: Nika Tolentino MD 11/13/21 0854 [id number] Tolentino MD /nt
[2021-11-13 11:59] VITALS: BP 174/81
--- NOTE | 2021-11-13 13:19 | NUR ---
Nutrition: Pt admitted with weakness. Assessed for LOS. H/o HTN. Has GIB, UTI. Heart healthy diet ordered. Labs: alb 1.6, BG 113. +BM yday. Wt: 173#, was 180# in Jul 2021. Possible mild wt loss. RD will order Ensure for added kcals. Consider mild risk. Will follow per protocol.
[2021-11-13 14:30] VITALS: BP 174/81
[2021-11-13 15:07] LABS: KAPPA FREE LIGHT CHAINS 97.8 mg/L (3.3-19.4); LAMBDA FREE LIGHT CHAINS 98.6 mg/L (5.7-26.3)
--- NOTE | 2021-11-13 17:19 | NUR ---
Pt has been accepted to [facility] in [place], [place]. Anticipate possible discharge on 11/15/21. Waiting on negative cultures for PICC line placement as pt will need 4 weeks of IV Ampicillian. Called spouse - Edwin to discuss and he is in agreement with discharge plan. CM to continue to follow for discharge planning.
[2021-11-13 19:07] LABS: ANA INTERPRETATION Negative (())
[2021-11-13 20:00] VITALS: BP 138/67
[2021-11-14 00:34] VITALS: BP 131/60
[2021-11-14 05:08] VITALS: BP 158/72
[2021-11-14 05:27] LABS: HEMATOCRIT 22.9 % (37.0-47.0); HEMOGLOBIN 7.5 gm/dL (12.0-15.0); MCH 26.6 pg (26.0-34.0); MCHC 32.8 g/dL (28.0-37.0); MCV 80.9 fL (80.0-100.0); MPV 5.9 fl. (7.2-11.1); RBC 2.83 mil/uL (4.20-5.00); RDW-CV 19.6 % (10.5-14.5); WBC 9.6 thou/uL (4.0-11.0)
--- NOTE | 2021-11-14 05:35 | NUR ---
ASSUMED CARE AT 1930. PATIENT RESTING IN BED. ALERT AND ORIENTED. ASSISTED WITH TURNS. APPEARED TO SLEEP MOST OF SHIFT. IVF INFUSING TO RT IJ. SKIN CARE DONE. MOISTURE BARRIER APPLIED. MONTESINOS DRAINING VINCENT URINE. NO AUDIBLE WHEEZING HEARD. AMPICILLIN IVPB DELAYED DUE TO PHARMACY. [facility] WHEN AVAILABLE. BP ACCEPTABLE. HOURLY ROUNDS CONTINUE. FALL PRECAUTIONS IN PLACE.
[2021-11-14 05:47] LABS: CALCIUM 7.1 mg/dL (8.5-10.1); CREATININE 4.2 mg/dL (0.6-1.3); MAGNESIUM 1.9 mg/dL (1.8-2.4); POTASSIUM 3.7 mmol/L (3.5-5.1)
[2021-11-14 08:00] VITALS: BP 150/72
[2021-11-14 09:08] LABS: GLOMERULR BASEM MEMBRN AB 4 units (0-20)
[2021-11-14 13:32] VITALS: BP 151/68
--- NOTE | 2021-11-14 16:18 | NUR ---
Pt has been accepted to [facility] ([facility]) in [place], [place]. Completed DA124 code: [id number]. Anticipate d/c on 11/15/21 with 4 weeks of IV Ampicillan. Called spouse - Edwin and discussed SNF placement and discharge tommorow and he is in agreement. CM to continue to follow for discharge planning.
[2021-11-14 17:05] VITALS: BP 156/74
[2021-11-14 21:00] VITALS: BP 142/61
--- NOTE | 2021-11-14 21:00 | NUR ---
RESTING QUIETLY IN BED. CALL LIGHT WITHIN REACH.
[2021-11-15 00:52] VITALS: BP 141/65
[2021-11-15 04:00] VITALS: BP 130/60
[2021-11-15 05:26] LABS: HEMATOCRIT 20.4 % (37.0-47.0); MCHC 32.9 g/dL (28.0-37.0); MCV 79.2 fL (80.0-100.0); MPV 6.2 fl. (7.2-11.1); RBC 2.57 mil/uL (4.20-5.00); RDW-CV 20.3 % (10.5-14.5); WBC 8.5 thou/uL (4.0-11.0)
[2021-11-15 05:38] LABS: HEMOGLOBIN 6.7 gm/dL (12.0-15.0)
[2021-11-15 05:42] LABS: ALBUMIN 1.3 g/dL (3.4-5.0); CALCIUM 6.9 mg/dL (8.5-10.1); CREATININE 3.9 mg/dL (0.6-1.3); MAGNESIUM 1.7 mg/dL (1.8-2.4); POTASSIUM 3.5 mmol/L (3.5-5.1); TOTAL BILIRUBIN 0.3 mg/dL (<0.1-1.0)
--- NOTE | 2021-11-15 06:21 | NUR ---
RESTED ON/OFF. ASSISTED WITH REPOSITIONING. GOOD BLOOD RETURN FROM DOUBLE LUMEN PICC. HOURLY ROUNDING IN PROGRESS.
[2021-11-15 08:25] VITALS: BP 143/86
--- NOTE | 2021-11-15 10:07 | NUR ---
Pt has been accepted to [facility] ([facility] in [place], [place]) P: [phone] and . DA124 Code: [id number]. anticipated pt would discharge today but doctor reports pt's HGB dropped to 6.7 and she now needs a blood transfusion. Called spouse - Edwin to discuss and he expresses understanding and is still in agreement with choice of facility. CM to continue to follow for discharge planning.
[2021-11-15 11:19] VITALS: BP 136/57; BP 137/51; BP 140/54; BP 141/57; BP 147/61
[2021-11-15 15:34] VITALS: BP 149/57
[2021-11-15 18:02] LABS: HEMOGLOBIN 9.9 gm/dL (12.0-15.0)
[2021-11-15 20:00] VITALS: BP 159/70
[2021-11-16] VITALS: BP 170/68
[2021-11-16 04:00] VITALS: BP 174/72
[2021-11-16 06:46] LABS: CALCIUM 7.2 mg/dL (8.5-10.1); CREATININE 3.8 mg/dL (0.6-1.3); MAGNESIUM 2.1 mg/dL (1.8-2.4); POTASSIUM 3.6 mmol/L (3.5-5.1)
--- NOTE | 2021-11-16 06:46 | NUR ---
Alert and oriented x 4. She is incontinent of bowel and bladder. She does some redness in periarea and buttocks which barrier cream is applied. Rt subclavin central line with double lumen is flushing well and has good blood return. She had no complaints of pain except when moving her side to side. She does have a bruise to rt hip which she states is from a cortisone shot. She has slept well this shift.
[2021-11-16 08:37] VITALS: BP 164/73
[2021-11-16 09:42] LABS: ABSOLUTE BASOPHILS 0.1 thou/uL (0.0-0.2); ABSOLUTE EOSINOPHILS 0.3 thou/uL (0.0-0.7); ABSOLUTE LYMPHOCYTES 1.4 thou/uL (0.8-5.3); ABSOLUTE MONOCYTES 0.6 thou/uL (0.0-1.2); ABSOLUTE NEUTROPHILS 8.1 thou/uL (1.6-8.1); BASOPHILS 0.7 %; EOSINOPHILS 2.8 %; HEMATOCRIT 29.2 % (37.0-47.0); HEMOGLOBIN 9.3 gm/dL (12.0-15.0); MCH 26.3 pg (26.0-34.0); MCV 82.3 fL (80.0-100.0); MONOCYTES 5.6 %; MPV 6.3 fl. (7.2-11.1); NUCLEATED RBCS 0 /100WBC; PLATELET COUNT* 356 thou/uL (150-400); POLYS 77.9 %; RBC 3.55 mil/uL (4.20-5.00); RDW-CV 19.3 % (10.5-14.5); WBC 10.4 thou/uL (4.0-11.0)
[2021-11-16 14:17] VITALS: BP 148/57
--- NOTE | 2021-11-16 17:03 | NUR ---
PLAN OF CARE" PHYSICIAN INFORMS OF PLAN FOR THE PT TO POSSIBLY D/C TOMORROW TO [facility]. PT HAAD BEEN ACCEPTED, IT IS NOT MEDICALLY STABLE AT THIS TIME, BUT MAY BE READY TO D/C TOMORROW. CM WILL RMEAIN AVAILABLE TO ASSIST AND FOLLOW NEEDED.
[2021-11-16 17:17] VITALS: BP 145/53
[2021-11-16 20:00] VITALS: BP 167/56
[2021-11-17] VITALS: BP 147/61
[2021-11-17 04:00] VITALS: BP 152/65
[2021-11-17 04:46] LABS: HEMATOCRIT 27.2 % (37.0-47.0); HEMOGLOBIN 8.8 gm/dL (12.0-15.0); MCH 26.9 pg (26.0-34.0); MCHC 32.3 g/dL (28.0-37.0); MCV 83.2 fL (80.0-100.0); MPV 6.1 fl. (7.2-11.1); RBC 3.26 mil/uL (4.20-5.00); RDW-CV 18.7 % (10.5-14.5); WBC 9.5 thou/uL (4.0-11.0)
[2021-11-17 05:01] LABS: CREATININE 3.8 mg/dL (0.6-1.3); MAGNESIUM 2.2 mg/dL (1.8-2.4); POTASSIUM 3.6 mmol/L (3.5-5.1)
[2021-11-17 08:00] VITALS: BP 131/68
--- NOTE | 2021-11-17 08:17 | NUR ---
Oriented x 4 but drowsy. Vitals are stable. I did give her tylenol at HS and that helped. She's SR on the monitor. She did sleep well but was easily awakened.
[2021-11-17] MEDS ORDERED: PROCARDIA XL30 MG PO (09:33)
[2021-11-17 12:28] VITALS: BP 138/59
--- NOTE | 2021-11-17 14:40 | NUR ---
Called and gave report to Heidi at [facility]. Patient is A&O, has all personal belongings, periph IV and collections attorney taken off. Has d/c papers and papers scripts in packet. Leaving with right subclavian central line to receive IV antibiotics at facility. Wheelchair van came to pick her up. Will call patient's to let him know she is on her way.
--- NOTE | 2021-11-17 16:32 | NUR ---
PT TO D/C TODAY TO [facility] SNF. PT AND SPOUSE IN AGREEMENT. RN CALLED REPORT. [facility] TO PROVIDE TRANSPORTATION. CM WILL REMAIN AVAILABLE TO ASSIST AND FOLLOW NEEDED. [facility] PHONE: [phone]
== END 2021-11-17 14:40 | DRG 871 ==
LOC: M.ERS 14:20 → M.TBA-ER 18:45 → M.2W 11-07 00:40
PROVIDERS: Family Medicine; Internal Medicine; Internal Medicine Nephrology; Nurse Practitioner Family; ADMIT Internal Medicine; ATTEND Internal Medicine
DX: A41.81 Sepsis due to Enterococcus (principal); E43 Unspecified severe protein-calorie malnutrition; G92.8 Other toxic encephalopathy; N17.0 Acute kidney failure with tubular necrosis; J96.00 Acute respiratory failure, unspecified whether with hypoxia or hypercapnia; N39.0 Urinary tract infection, site not specified; E87.1 Hypo-osmolality and hyponatremia; K92.2 Gastrointestinal hemorrhage, unspecified; N18.4 Chronic kidney disease, stage 4 (severe); I12.9 Hypertensive chronic kidney disease with stage 1 through stage 4 chronic kidney disease, or unspecified chronic kidney disease; Z20.822 Contact with and (suspected) exposure to COVID-19; E78.5 Hyperlipidemia, unspecified; E78.00 Pure hypercholesterolemia, unspecified; R31.29 Other microscopic hematuria; E86.9 Volume depletion, unspecified; E87.5 Hyperkalemia; D50.0 Iron deficiency anemia secondary to blood loss (chronic); E66.9 Obesity, unspecified; I35.0 Nonrheumatic aortic (valve) stenosis; E89.0 Postprocedural hypothyroidism; B96.20 Unspecified Escherichia coli [E. coli] as the cause of diseases classified elsewhere; Z87.440 Personal history of urinary (tract) infections; Z86.19 Personal history of other infectious and parasitic diseases; Z68.27 Body mass index [BMI] 27.0-27.9, adult; Z85.820 Personal history of malignant melanoma of skin; Z79.899 Other long term (current) drug therapy; Z88.6 Allergy status to analgesic agent; Z88.1 Allergy status to other antibiotic agents; Z88.8 Allergy status to other drugs, medicaments and biological substances

== ENCOUNTER 2021-11-22 16:40 | Inpatient (IN) | payer MEDICARE ==
[~2021-11-22] VITALS: Ht 167.6 cm; Wt 90.3 kg
--- NOTE | ~2021-11-22 | EMS ---
[place] [address] EMS Patient Care Report Name: IGOR RAMOS Room: [facility]#: [id number] Admission: 11/22/21 Attend Phys: Discharge: Date of : 42 Report #: [id number] THIS REPORT FOR: //name// Report Transmitted: 11/22/2021 17:19 EMS Care Summary [facility] Incident [id number] @ 11/22/2021 15:38 Incident Location [address] [place] [address] 204 Patient IGOR RAMOS Female, 81 Years 1940 Patient Address [address] [place] [address] Patient History Congestive Heart Failure (CHF),Hypertension (HTN),Kidney/Renal Failure,Hyperlipidemia,Anemia,Sepsis,Edema,Hypothyroidism,Hypokalemia, Patient Allergies Acetaminophen,Meperidine,Cipro, Patient Medications Other, Synthroid, Zofran, Prednisone, Lipitor, Doxycycline, Nifedipine, Chief Complaint Critical Labs, per physician Disposition Transported No Lights/[place] [facility] Reason No Other Appropriate Choice Transported To [facility] Narrative Dispatched to [facility] for a person with critical labs. Med 1 went en route, without incident. Med arrived at the patient to find her, conscious, oriented, and alert lying semi flores with 2 LPM of Oxygen [place] [address] EMS Patient Care Report Name: IGOR RAMOS Room: [facility]#: [id number] Admission: 11/22/21 Attend Phys: Discharge: Date of : 42 Report #: [id number] The patients physician wanted the patient transported to [facility] for critical lab values and new onset of pneumonia in (L) lung. The patient was recently released from the hospital. The patient was being treated for sepsis, from a pic infection. The long term staff, noticed an increase in the patients abdomen. The patients vitals were obtained with no critical findings. The patient was moved from her bed to the cot, with EMS assistance. The patient was secured with safety straps. Airway- patent; self maintained. Breathing- regular, rapid, with good quality. Breath sounds present in all lung kingsley, with no wheezing present. Circulation/Skin- warm, pink, and dry. Temperature results of 97.9. Mental Status- normal mental status for patient. Conscious, oriented, and alert. The patient was placed in a sitting up position during transport, which increased her oxygen saturation. The patients vitals were monitored during transport to the hospital. The patient report was called to ED staff with no questions or orders requested. The patient was left in room 18. Initial Vitals @15:59P: 0,BP: 167/77, @16:29P: 89,BP: 170/76,SpO2: 95, @16:24P: 91, @16:09P: 91, @16:33P: 90,BP: 168/76, @15:44P: 94,R: 24,BP: 140/92,Pain: 0/10,GCS: 15,SpO2: 91,Revised Trauma: 12, @16:21P: 88,R: 22,Pain: 0/10,GCS: 15,Temp: 97.9F,Glucose: 159,SpO2: 94, Assessments @15:44MENTAL:Place Oriented,Time Oriented,Person Oriented,Event Oriented,SKIN:HEENT:Eyes: Left Pupil: 4-mm,Eyes: Right Pupil: 4-mm,LUNG SOUNDS:General: Nausea,ABDOMEN:General: Nausea,PELVIS//GI:EXTREMITIES:Left Leg: Edema,Right Leg: Edema,PULSE:Radial: 2+ Normal,NEURO:@16:08MENTAL:Event Oriented,Time Oriented,Place Oriented,Person Oriented,SKIN:HEENT:Eyes: Right Pupil: 4-mm,Eyes: Left Pupil: 4-mm,LUNG SOUNDS:Left Upper: Distension,Right Lower: Distension,Left Lower: Distension,Right Upper: Distension,ABDOMEN:Left Upper: Distension,Right Lower: Distension,Left Lower: Distension,Right Upper: Distension,PELVIS//GI:EXTREMITIES:Left Leg: Edema,Right Leg: Edema,PULSE:Radial: 2+ Normal,NEURO: Impression Shortness of breath Procedures @15:44 BLS Assessment Response: Unchanged @16:01 3-Lead ECG Response: UnchangedSucceeded @15:50 Oxygen FlowRate: 2 Device: Nasal Cannula (NC) Response: [place] [address] EMS Patient Care Report Name: IGOR RAMOS [id number] Admission: 11/22/21 Attend Phys: Discharge: Date of : 42 Report #: [id number] Timeline 15:38,Call Received 15:38,Dispatched 15:38,En Route 15:42,On Scene 15:44,At Patient 15:44,BLS Assessment,Response: Unchanged 15:44,BP: 140/92 M,PULSE: 94,RR: 24 R,SPO2: 91 Ox,ETCO2: ,BG: ,PAIN: 0,GCS: 15, 15:50,Oxygen FlowRate: 2 Device: Nasal Cannula (NC) Response: UnchangedSucceeded, 15:59,BP: 167/77 M,PULSE: 0,RR: R,SPO2: Ox,ETCO2: ,BG: ,PAIN: ,GCS: , 16:01,Depart Scene 16:01,3-Lead ECG,Response: UnchangedSucceeded, 16:09,BP: / M,PULSE: 91,RR: R,SPO2: Ox,ETCO2: ,BG: ,PAIN: ,GCS: , 16:21,BP: / M,PULSE: 88,RR: 22 R,SPO2: 94 Ox,ETCO2: ,B,PAIN: 0,GCS: 15, 16:24,BP: / M,PULSE: 91,RR: R,SPO2: Ox,ETCO2: ,BG: ,PAIN: ,GCS: , 16:29,BP: 170/76 M,PULSE: 89,RR: R,SPO2: 95 Ox,ETCO2: ,BG: ,PAIN: ,GCS: , 16:33,BP: 168/76 M,PULSE: 90,RR: R,SPO2: Ox,ETCO2: ,BG: ,PAIN: ,GCS: , 16:39,At Destination 17:08,Call Closed Disclaimer v1.1 Copyright 2021 [employer] This EMS Care Summary contains data elements from the applicable legal record (which may be displayed differently). It is designed to provide pertinent information for the following purposes: continuity of care, clinical quality, and state data reporting. The complete legal record is available to ED staff and administrators of the receiving hospital in [facility]'s Patient Tracker. All data is provided "as is."
[~2021-11-22 16:40] MED LIST changes: +PROCARDIA XL30 MG PO
[2021-11-22] MEDS ORDERED: AMPICILLIN SODIU2 GM IV (16:47)
[2021-11-22] MEDS ORDERED: FLORASTOR250 MG PO (16:47)
[2021-11-22] MEDS ORDERED: DOXYCYCLINE HY100 M3 PO (16:48)
[2021-11-22 16:49] VITALS: BP 165/65
[2021-11-22 17:49] LABS: HEMATOCRIT 26.1 % (37.0-47.0); HEMOGLOBIN 8.5 gm/dL (12.0-15.0); MCH 27.2 pg (26.0-34.0); MCHC 32.7 g/dL (28.0-37.0); MPV 6.3 fl. (7.2-11.1); NUCLEATED RBCS 0 /100WBC; PLATELET COUNT* 278 thou/uL (150-400); RBC 3.14 mil/uL (4.20-5.00); RDW-CV 19.6 % (10.5-14.5); WBC 8.8 thou/uL (4.0-11.0)
[2021-11-22 17:55] LABS: ANION GAP 13 mmol/L (7-16); BUN 46 mg/dL (7-18); CALCIUM 7.1 mg/dL (8.5-10.1); CHLORIDE 105 mmol/L (98-107); CO2 22 mmol/L (21-32); GLUCOSE 100 mg/dL (70-99); POTASSIUM 3.5 mmol/L (3.5-5.1); SODIUM 140 mmol/L (136-145)
[2021-11-22 18:06] LABS: ALBUMIN 1.9 g/dL (3.4-5.0); ALKALINE PHOSPHATASE 63 U/L (46-116); SGOT 20 U/L (15-37); TOTAL BILIRUBIN 0.3 mg/dL (<0.1-1.0); TOTAL PROTEIN 5.6 g/dL (6.4-8.2)
[2021-11-22 18:26] LABS: NT-PRO BRAIN NAT PEPTIDE > 35000 pg/mL (<300); SGPT 10 U/L (30-65)
[2021-11-22 18:30] LABS: ABSOLUTE LYMPHOCYTES 1.3 thou/uL (0.8-5.3); ABSOLUTE MONOCYTES 0.1 thou/uL (0.0-1.2); ABSOLUTE NEUTROPHILS 7.4 thou/uL (1.6-8.1); PLATELET ESTIMATE ADEQUATE
[2021-11-22 18:31] LABS: ANISOCYTOSIS 1+
[2021-11-22 18:32] LABS: HYPOCHROMASIA Occasional; POLYCHROMASIA Occasional
[2021-11-22 23:00] VITALS: BP 179/93
[2021-11-23] VITALS (7 sets, daily range): BP systolic 135–183; BP diastolic 48–75
[2021-11-23 00:01] LABS: URINE BILIRUBIN NEGATIVE (Negative); URINE BLOOD 2+ (Negative); URINE CLARITY CLEAR; URINE COLOR YELLOW; URINE GLUCOSE-RANDOM NEGATIVE (Negative); URINE KETONES NEGATIVE (Negative); URINE LEUKOCYTES NEGATIVE (Negative); URINE NITRITE NEGATIVE (Negative); URINE PROTEIN 2+ (Negative); URINE UROBILINOGEN 0.2 E.U./dl (0.2-1.0)
[2021-11-23 00:18] LABS: BACTERIA 1-9 Few /HPF (None Seen); SQUAMOUS 0-3 Few /LPF (0-3); URINE RBC 3-10 Few /HPF (0-2); URINE WBC 0-5 Rare /HPF (0-5)
[2021-11-23 00:19] LABS: CASTS None Seen /LPF (None Seen); CRYSTALS None Seen /LPF (None Seen); MUCUS 0-3 Light strn/LPF (None Seen); YEAST Present (None Seen)
[2021-11-23 01:56] LABS: BE -5.6 mmol/L (-2 to +3); PCO2 38.4 mmHg (35.0-45.0)
--- NOTE | 2021-11-23 09:12 | EKG ---
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: : 1940 Requested By: Jim Pizarro Order Number: [id number] MD: Jose Melissa Measurements Intervals [place] Rate: 87 P: 32 OK: 154 QRS: 34 QRSD: 93 T: 148 QT: 421 QTc: 507 Interpretive Statements Sinus rhythm Ventricular premature complex Probable left atrial enlargement Nonspecific T wave flattening Prolonged QT interval Compared to ECG 11/05/2021 18:06:07 Ventricular premature complex(es) now present T-wave abnormality now present Prolonged QT interval now present Left-axis deviation no longer present Electronically Signed On 11-23-2021 9:12:37 TECHNICAL APPLICATIONS SCIENTIST by Jose Melissa [email or web address] <ELECTRONICALLY SIGNED> By: Jose Melissa MD, [facility] 11/23/21911 54 54 Jose Melissa MD, [facility] /EPI
--- NOTE | 2021-11-23 10:24 | NUR ---
Pt is admitted to the hospital on 11/22/21 from [facility] for abnormal labs (Elevated Bun,Creat,BNP) and was found to have exacerbation of CHF. Pt is a re-admit. She just discharged on 11/17/21 to [facility] in [place], [place] (SNF) for 4 weeks of IV Antibiotics (Ampicillian). Pt previously lives with her spouse - Edwin who confirms discharge plan is for her to return to [facility]. Elma from [facility] called and requested clinicals be faxed to: [phone]. Pt has a hx of Delonte SAMANIEGO. Pt previously ambulated with a RW. CM to continue to follow pt for discharge planning.
[2021-11-24] VITALS: BP 171/71
[2021-11-24 04:00] VITALS: BP 175/75
[2021-11-24 08:11] VITALS: BP 165/63
[2021-11-24 12:09] VITALS: BP 182/65
[2021-11-24 13:49] LABS: ABSOLUTE BASOPHILS 0.1 thou/uL (0.0-0.2); ABSOLUTE EOSINOPHILS 0.1 thou/uL (0.0-0.7); ABSOLUTE LYMPHOCYTES 0.8 thou/uL (0.8-5.3); ABSOLUTE MONOCYTES 0.5 thou/uL (0.0-1.2); ABSOLUTE NEUTROPHILS 10.1 thou/uL (1.6-8.1); BASOPHILS 0.7 %; HEMATOCRIT 28.4 % (37.0-47.0); LYMPHOCYTES 7.1 %; MCH 26.6 pg (26.0-34.0); MCHC 31.6 g/dL (28.0-37.0); MONOCYTES 4.1 %; MPV 6.8 fl. (7.2-11.1); NUCLEATED RBCS 0 /100WBC; PLATELET COUNT* 232 thou/uL (150-400); POLYS 87.1 %; RBC 3.38 mil/uL (4.20-5.00); RDW-CV 20.2 % (10.5-14.5); WBC 11.6 thou/uL (4.0-11.0)
[2021-11-24 13:58] LABS: CREATININE 3.1 mg/dL (0.6-1.3); POTASSIUM 3.2 mmol/L (3.5-5.1)
[2021-11-24 14:03] LABS: ALBUMIN 1.9 g/dL (3.4-5.0); TOTAL BILIRUBIN 0.4 mg/dL (<0.1-1.0); TOTAL PROTEIN 5.4 g/dL (6.4-8.2)
[2021-11-24 14:18] LABS: PHOSPHORUS* 6.6 mg/dL (2.5-4.9)
--- NOTE | 2021-11-24 14:54 | NUR ---
During Team Meeting the doctor felt pt could return to her SNF ([facility] in [place], [place]) on 11/27/21. Spoke with Elma at [facility] and she was in agreement. [facility] does not provide transportation. Faxed updated clinicals to [facility] at: [phone]. ( ). Called pt's spouse - Edwin at: [phone] to discuss possible discharge on Saturday back to [facility] and he was in agreement with discharge plan. CM to continue to follow for discharge planning.
[2021-11-24 16:54] VITALS: BP 134/52
--- NOTE | 2021-11-24 18:07 | NUR ---
PT IS A&O X 4. PT HAS A PICC LINE ON RT CHEST. PT IS ON BI PAP. OR N/C AT 7L. PT HAS PURE WICK IN PLACE. PT HAD CONSULTS WITH DR. RAJAN, DR TRUJILLO, AND CARDIO. PT HAD BM THIS SHIFT. PT IS RESTING IN BED WITH CALL LIGHT IN REACH.
[2021-11-24 20:00] VITALS: BP 157/61
[2021-11-25 00:16] VITALS: BP 135/51
--- NOTE | 2021-11-25 00:42 | NUR ---
PT ALERT ORIENTED. ON BIPAP FOR THE NIGHTS. FIO2 AT 50% PT HAS CAME OFF TWICE FOR MEDS AND OR WATER. SECURITIES COMPLIANCE EXAMINER TRACING SR. PT ON 1500 ML FR. NO INTAKE RECORDED ON DAYS. PT GIVEN 400ML FOR THE NIGHT.
[2021-11-25 04:00] VITALS: BP 166/59
[2021-11-25 06:22] LABS: ABSOLUTE BASOPHILS 0.1 thou/uL (0.0-0.2); ABSOLUTE EOSINOPHILS 0.2 thou/uL (0.0-0.7); ABSOLUTE LYMPHOCYTES 0.9 thou/uL (0.8-5.3); ABSOLUTE MONOCYTES 0.4 thou/uL (0.0-1.2); ABSOLUTE NEUTROPHILS 6.3 thou/uL (1.6-8.1); BASOPHILS 0.8 %; EOSINOPHILS 2.6 %; HEMATOCRIT 25.9 % (37.0-47.0); HEMOGLOBIN 8.4 gm/dL (12.0-15.0); LYMPHOCYTES 11.5 %; MCH 27.3 pg (26.0-34.0); MCHC 32.3 g/dL (28.0-37.0); MCV 84.6 fL (80.0-100.0); MONOCYTES 4.6 %; MPV 7.3 fl. (7.2-11.1); NUCLEATED RBCS 0 /100WBC; PLATELET COUNT* 196 thou/uL (150-400); POLYS 80.5 %; RBC 3.06 mil/uL (4.20-5.00); RDW-CV 20.7 % (10.5-14.5); WBC 7.9 thou/uL (4.0-11.0)
[2021-11-25 06:53] LABS: APTT 30.9 Seconds (25.0-31.3); INR 1.1; PROTIME 11.5 Seconds (9.20-11.50)
[2021-11-25 07:07] LABS: ALBUMIN 1.7 g/dL (3.4-5.0); CALCIUM 6.8 mg/dL (8.5-10.1); MAGNESIUM 1.9 mg/dL (1.8-2.4); PHOSPHORUS* 6.2 mg/dL (2.5-4.9); POTASSIUM 3.6 mmol/L (3.5-5.1); TOTAL BILIRUBIN 0.4 mg/dL (<0.1-1.0); TOTAL PROTEIN 5.1 g/dL (6.4-8.2)
[2021-11-25 07:50] LABS: ANISOCYTOSIS 2+; PLATELET ESTIMATE ADEQUATE
[2021-11-25 08:00] VITALS: BP 147/57
[2021-11-25 11:52] VITALS: BP 165/71
[2021-11-25 16:00] VITALS: BP 152/58
--- NOTE | 2021-11-25 16:25 | NUR ---
Pt remains on furosemide gtt. Good urine output via Pure Wick. Pt weak, bedfast for now. Therapy worked with patient this am while pt in bed. Alert and oriented, but slept for much of the day. Poor po intake nutrition-espinoza, but ddrinks water. States nothing sounds good to eat. DtrDorita, visiting today, and remains in room at this time. Pt has 5 rings, 3 on Rt hand and 2 on Lt hand, and fingers edematous making rings tight-fitting. Removed 3 rings from Rt hand and one from Lt hand using lubricating jelly. One more finger remains on middle finger of Lt hand that is still tight. Using ice and coban wrap to help reduce swelling to finger and will attempt later to remove finger. DtrDorita, has the 4 rings and 1 watch that have already been removed. VSS. Will continue to monitor.
[2021-11-25 20:00] VITALS: BP 160/61
[2021-11-26 00:54] VITALS: BP 137/49
--- NOTE | 2021-11-26 02:03 | NUR ---
PT ALERT ORIENTED FORGETFUL. INITALLY STARTED OUT WITH BIPAP BUT UNABLE TO TOLERATE. O2 AT 4 LITERS NC. FACEPIECE LINE SUPERVISOR TRACING SR. PURE WICK IN PLACE DRAINING YELLOW.
[2021-11-26 04:00] VITALS: BP 120/44
[2021-11-26 06:21] LABS: ABSOLUTE BASOPHILS 0.1 thou/uL (0.0-0.2); ABSOLUTE EOSINOPHILS 0.4 thou/uL (0.0-0.7); ABSOLUTE LYMPHOCYTES 1.1 thou/uL (0.8-5.3); ABSOLUTE MONOCYTES 0.4 thou/uL (0.0-1.2); ABSOLUTE NEUTROPHILS 6.4 thou/uL (1.6-8.1); BASOPHILS 0.9 %; EOSINOPHILS 4.5 %; HEMATOCRIT 25.2 % (37.0-47.0); HEMOGLOBIN 8.3 gm/dL (12.0-15.0); LYMPHOCYTES 12.7 %; MCH 27.5 pg (26.0-34.0); MCHC 32.8 g/dL (28.0-37.0); MONOCYTES 4.8 %; MPV 7.2 fl. (7.2-11.1); NUCLEATED RBCS 0 /100WBC; PLATELET COUNT* 182 thou/uL (150-400); POLYS 77.1 %; RDW-CV 21.2 % (10.5-14.5); WBC 8.3 thou/uL (4.0-11.0)
[2021-11-26 06:45] LABS: ALBUMIN 1.7 g/dL (3.4-5.0); CALCIUM 6.9 mg/dL (8.5-10.1); CREATININE 2.8 mg/dL (0.6-1.3); POTASSIUM 3.5 mmol/L (3.5-5.1); TOTAL BILIRUBIN 0.4 mg/dL (<0.1-1.0); TOTAL PROTEIN 5.1 g/dL (6.4-8.2)
[2021-11-26 08:00] VITALS: BP 152/60
--- NOTE | 2021-11-26 08:44 | NUR ---
PT PLACED ON RA, PT DOESN'T WERE O2 AT HOME. PT SP02 AT 95%. WILL CONTINUE TO MONITOR.
[2021-11-26 13:00] VITALS: BP 156/59
[2021-11-26 16:00] VITALS: BP 97/61
--- NOTE | 2021-11-26 18:30 | NUR ---
RECEIVED REPORT. ASSUMED CARE OF PT AROUND 0730. AM ASSESSMENT AND VITALS COMPLETED CHARTED. MEDS PER EMAR. UPDATE GIVEN TO DAUGHTER AT BEDSIDE. TURNS Q2HR. PT WITH POOR APPETITE DESPITE ENCOURAGEMENT TO EAT. PT NOT PROGRESSING TOWARDS GOALS. LASIX GTT CONTINUES. FALL PRECAUTIONS IN PLACE. HOURLY ROUNIDNG.CANDY MAKER IN PLACE.
[2021-11-26 20:00] VITALS: BP 173/68
[2021-11-27] VITALS: BP 173/73
[2021-11-27 03:30] VITALS: BP 170/51
[2021-11-27 05:44] LABS: ABSOLUTE BASOPHILS 0.1 thou/uL (0.0-0.2); ABSOLUTE EOSINOPHILS 0.4 thou/uL (0.0-0.7); ABSOLUTE LYMPHOCYTES 1.1 thou/uL (0.8-5.3); ABSOLUTE MONOCYTES 0.5 thou/uL (0.0-1.2); ABSOLUTE NEUTROPHILS 6.8 thou/uL (1.6-8.1); BASOPHILS 1.3 %; EOSINOPHILS 4.3 %; HEMOGLOBIN 8.7 gm/dL (12.0-15.0); MCH 27.1 pg (26.0-34.0); MCHC 32.2 g/dL (28.0-37.0); MCV 84.1 fL (80.0-100.0); MONOCYTES 5.2 %; NUCLEATED RBCS 0 /100WBC; PLATELET COUNT* 182 thou/uL (150-400); POLYS 77.2 %; RBC 3.21 mil/uL (4.20-5.00); RDW-CV 20.9 % (10.5-14.5); WBC 8.9 thou/uL (4.0-11.0)
[2021-11-27 06:06] LABS: ALBUMIN 1.8 g/dL (3.4-5.0); CALCIUM 6.8 mg/dL (8.5-10.1); CREATININE 2.5 mg/dL (0.6-1.3); POTASSIUM 3.3 mmol/L (3.5-5.1); TOTAL BILIRUBIN 0.5 mg/dL (<0.1-1.0); TOTAL PROTEIN 5.2 g/dL (6.4-8.2)
[2021-11-27 07:15] LABS: ANISOCYTOSIS 2+; PLATELET ESTIMATE ADEQUATE; POLYCHROMASIA 1+
[2021-11-27 08:04] VITALS: BP 160/63
[2021-11-27 12:19] VITALS: BP 134/55
--- NOTE | 2021-11-27 15:34 | NUR ---
In team meeting - physician reports pt will be discharged back to [facility] with in 24-48 hours. Called spouse - Edwin to discuss at: [phone] and he is in agreement with discharge plan but is discouraged by pt's limited progress. Called Elma at [facility] and she asking about being tested for Covid on admission. Faxed Negative Covid test to: [phone] and discussed she was vaccinated (Moderna). Faxed updated clinicals as well. CM to continue to follow for discharge planning.
--- NOTE | 2021-11-27 15:43 | CON ---
[address] [address] CONSULTATION Name: IGOR RAMOS Room: [address] IN M.R.#: [id number] Admission: 11/22/21 Attend Phys: Helena Rubalcava Discharge: Date of : 42 Report #: [id number] THIS REPORT FOR: cc: Daisy Espinoza MD, Constance M. MD Pervez, Adeel MD ~ DATE OF CONSULTATION: 11/24/2021 REQUESTING PHYSICIAN: Consult has been requested by Dr. Roger Baig. INDICATION FOR CONSULTATION: Acute hypoxemic respiratory failure. HISTORY OF PRESENT ILLNESS: This is an 81-year-old female with past medical history as mentioned below. This does not include a history of a cardiac or respiratory disease. The patient has had renal failure recently. It appears that her creatinine was normal in 07/2021 and then was noted to rise to around 1.4. It is not known to me as to whether this ever subsequently normalized. The patient subsequently was admitted to this hospital in the early part of this month. At that time, the patient was in acute renal failure. Creatinine was 4.9. The patient was also bacteremic with an Enterococcus, which is sensitive to ampicillin. The etiology of this Enterococcus bacteremia does not appear to be fully established. The patient did have a AGGIE performed, which does not show vegetations, left ventricular ejection fraction was normal, right heart was not well visualized. The patient was subsequently started on ampicillin and was discharged home on ampicillin IV. The patient now got readmitted 2 days ago, transferred from rehab facility. The patient is reported to be increasingly shortness of breath and now requiring oxygen. The patient at baseline does not require oxygen. There has also been an increase in swelling of lower extremities. There is some cough. There is not much sputum. There are no upper respiratory complaints. The patient provided a limited history; however, review of systems is negative for 12 points except as mentioned above. PAST MEDICAL HISTORY: Recent acute renal failure diagnosed earlier this month as above. As noted creatinine sonja mildly in July to 1.4, not known to me as to whether it sonja progressively after this or acute renal failure was new in October, Enterococcus bacteremia etiology not certain. A AGGIE does not show vegetations, left ventricular ejection fraction is normal, right heart not well visualized on the last AGGIE, melanoma, thyroidectomy, UTIs, hypertension, hyperlipidemia. SOCIAL HISTORY: Lifetime nonsmoker. No known history of heavy alcohol use or [place] [address] CONSULTATION Name: IGOR RAMOS Room: [address]#: [id number] Admission: 11/22/21 Attend Phys: Helena Rubalcava Discharge: Date of : 42 Report #: [id number] CURRENT MEDICATIONS: List in [facility] reviewed. HOME MEDICATIONS: List in [facility] reviewed. ALLERGIES: TYLENOL, CIPROFLOXACIN, AND MEPERIDINE ARE MENTIONED ALLERGIES. FAMILY HISTORY: No pertinent family history known at this time. PHYSICAL EXAMINATION: GENERAL: She is alert, awake and oriented. She was on 50% BiPAP at the time of my evaluation. We switched her over to a high-flow nasal cannula. She still was maintaining O2 saturation with a high-flow nasal cannula in the mid 90s and we will titrate nasal cannula oxygen. VITAL SIGNS: Vitals are in the records reviewed. Body mass index is 29. HEENT: She has a narrow airway. NECK: Does not show raised JVP. CHEST: Breath sounds bilaterally equal. No added sounds. HEART: Regular. There is no murmur. ABDOMEN: Soft, nontender. EXTREMITIES: Lower extremity 3+ edema bilaterally. No calf tenderness. LABORATORY DATA: Lab work in [facility] reviewed. IMAGING: Chest x-ray consistent with acute pulmonary edema in [facility] reviewed. Renal ultrasound in [facility] reviewed. V/Q scan in [facility] reviewed. ASSESSMENT AND PLAN: 1. Acute hypoxemic respiratory failure. At first glance, it appears that the patient is in acute pulmonary edema secondary to fluid overload. At this time, we will continue to support her with a BiPAP while asleep and as needed. We will continue to titrate oxygen. 2. Fluid overload. Primarily, this appears to be related to acute renal failure. A left ventricular ejection fraction was normal on the recent AGGIE, may consider obtaining a transthoracic echo now to assess the right heart as well, but as Cardiology Service is on the case, I would defer to them. Previous transthoracic echo from July shows a normal left ventricular ejection fraction with a pulmonary artery systolic elevated to 50, recommend fluid removal. I called and discussed with Dr. Sissy Joshi, who I understand has ordered a Lasix drip. In case the sufficient fluid is not removed with the diuresis then hemodialysis may be considered. I would defer to the Nephrology service. I did not order albumin at this time as pulmonary edema may worsen. The patient would likely benefit from some albumin administration. Once some fluid has been removed, would need ongoing close monitoring of potassium levels as well. [address] [address] CONSULTATION Name: IGOR RAMOS Room: [address] IN [facility]#: [id number] Admission: 11/22/21 Attend Phys: Helena Rubalcava Discharge: Date of : 42 Report #: [id number] 3. Enterococcus bacteremia/pulmonary infiltrates. The patient currently is on ampicillin, new infiltrative changes on chest x-ray, primarily appears to be related to pulmonary edema. Therefore, I did not broaden antibiotic coverage, should the patient declined or fail to improve, then considering that the Enterococcus was sensitive to ampicillin, which should be sensitive to Zosyn as well and I would recommend in that case considering switching to Zosyn and possibly adding linezolid. Recommend obtaining a nasal swab for methicillin-resistant Staphylococcus aureus and a sputum culture as well. 4. Edema of lower extremities, evaluation for thromboembolic phenomena. Discussion regarding consideration for an echo is as above. I would also go ahead and order venous Dopplers. I would obtain a D-dimer as well, however, an elevated D-dimer in this patient could be due to other etiologies as well and therefore a D-dimer will likely only be of significance. If it is low, in that case it will out thromboembolism. 5. Acute Renal Failure. See discussion above 6. Possible component of bronchospasm. At present, this is likely secondary to fluid overload. I would go ahead and give her nebulized bronchodilators for now, I decided to hold off on steroids. 7. Deep vein thrombosis prophylaxis. She is on subcutaneous heparin. 8. Gastrointestinal prophylaxis. She is on Protonix. Thanks for this consultation. <ELECTRONICALLY SIGNED> By: William Esteves MD 11/27/21 1543 [id number] kushal Piedra
[2021-11-27 16:37] VITALS: BP 130/67
--- NOTE | 2021-11-27 17:23 | CON ---
[address] [address] CONSULTATION Name: IGOR RAMOS Room: [address] IN M.R.#: [id number] Admission: 11/22/21 Attend Phys: Helena Rubalcava Discharge: Date of : 42 Report #: [id number] THIS REPORT FOR: cc: Daisy Espinoza MD, Constance M. MD Khan, Abid R. MD ~ DATE OF CONSULTATION: 11/24/2021 NEPHROLOGY CONSULT REASON FOR CONSULTATION: Elevated creatinine. HISTORY OF PRESENT ILLNESS: An 81-year-old female who was recently hospitalized here and discharged within the past week or so. She was admitted from the nursing facility with lethargy. She is awake and alert now, but has been placed on BiPAP and there is some concern that she may have an element of congestive heart failure. Chest x-ray and labs have been ordered for this morning. Her creatinine 2 days prior was 3.0. When she left, it was 3.8. Currently, appears to be comfortable, has no other complaints. REVIEW OF SYSTEMS: Constitutional, psych, heme, eyes, ENT, respiratory, cardiac, GI, , endocrine, all negative except as documented above and as best as can be ascertained. PAST MEDICAL HISTORY: Hypothyroidism, dyslipidemia, CHF, history of melanoma, history of thyroidectomy. SOCIAL HISTORY: No tobacco. FAMILY HISTORY: Noncontributory in this 81-year-old female. CURRENT MEDICATIONS: Reviewed. PHYSICAL EXAMINATION: VITAL SIGNS: Blood pressure is 165/63, pulse 83, respirations 18, temperature 36.7. GENERAL: No acute distress. EYES: Open. EARS: Externally normal. NECK: Supple. CARDIOVASCULAR: Regular rate. LUNGS: Diminished breath sounds. ABDOMEN: Soft. MUSCULOSKELETAL: Positive swelling of the lower extremities. PSYCHIATRIC: Awake, [place] [address] CONSULTATION Name: IGOR RAMOS Room: [address] IN [facility]#: [id number] Admission: 11/22/21 Attend Phys: Helena Rubalcava Discharge: Date of : 42 Report #: [id number] LABORATORY DATA: From 2 days ago, white cell count 8.8, hemoglobin 8.5, platelets 278. Sodium 140, potassium 3.5, chloride 105, bicarbonate 22, BUN 46, creatinine 3, glucose 100, calcium 7.1, albumin is 1.9. ASSESSMENT: 1. Acute kidney injury with a history of NSAID use. Baseline creatinine around 0.9. Discharge creatinine on 11/17/2021 was 3.8. Admission creatinine on 11/22/2021 was 3.0. When she was recently hospitalized here, her creatinine was 4.9 on admission. She had a UTI and has microscopic hematuria as well. She had an abdominal CT scan on 11/06 showing no hydronephrosis or ANCA; anti-GBM, IKE, free light chain C3-C4 were okay. 2. Hypertension. 3. Anemia with recent gastrointestinal bleed and transfusion. 4. Recent urinary tract infection and gram-positive bacteremia with negative AGGIE for vegetation on 11/09/2021. 5. Hypoalbuminemia with an albumin of 1.9. 6. Hypothyroidism. PLAN: Creatinine stable from 2 days ago. She does have some concern for possible pulmonary edema. She has a chest x-ray ordered and labs have been ordered as well. Case was discussed with Dr. Baig. We Follow along with you. Thank you for requesting my opinion in the care and management of this patient. <ELECTRONICALLY SIGNED> By: Sissy Joshi MD 11/27/21 1723 1100 [id number] Joshi MD /nt
[2021-11-27 20:30] VITALS: BP 147/63
[2021-11-28 00:17] VITALS: BP 150/61
[2021-11-28 04:00] VITALS: BP 137/59
[2021-11-28 07:06] LABS: ABSOLUTE BASOPHILS 0.1 thou/uL (0.0-0.2); ABSOLUTE EOSINOPHILS 0.3 thou/uL (0.0-0.7); ABSOLUTE LYMPHOCYTES 1.2 thou/uL (0.8-5.3); ABSOLUTE MONOCYTES 0.5 thou/uL (0.0-1.2); ABSOLUTE NEUTROPHILS 5.7 thou/uL (1.6-8.1); BASOPHILS 0.8 %; EOSINOPHILS 4.2 %; HEMATOCRIT 24.7 % (37.0-47.0); LYMPHOCYTES 15.8 %; MCH 27.2 pg (26.0-34.0); MCHC 32.2 g/dL (28.0-37.0); MCV 84.4 fL (80.0-100.0); MPV 7.6 fl. (7.2-11.1); NUCLEATED RBCS 0 /100WBC; PLATELET COUNT* 158 thou/uL (150-400); POLYS 73.2 %; RBC 2.93 mil/uL (4.20-5.00); RDW-CV 21.6 % (10.5-14.5); WBC 7.7 thou/uL (4.0-11.0)
[2021-11-28 07:17] LABS: ALBUMIN 1.7 g/dL (3.4-5.0); CALCIUM 6.8 mg/dL (8.5-10.1); CREATININE 2.6 mg/dL (0.6-1.3); POTASSIUM 4.1 mmol/L (3.5-5.1); TOTAL BILIRUBIN 0.4 mg/dL (<0.1-1.0); TOTAL PROTEIN 4.9 g/dL (6.4-8.2)
[2021-11-28 08:28] VITALS: BP 141/53
[2021-11-28 09:13] LABS: PLATELET ESTIMATE ADEQUATE
[2021-11-28 09:14] LABS: ANISOCYTOSIS 2+
--- NOTE | 2021-11-28 10:12 | NUR ---
ASSUMED CARE OF PT THIS AM AROUND 0715- PROFESSOR OF ARCHAEOLOGY IN PLACE ORDERED, TRACING SR- UPON ASSESSMENT PT NOTED TO BE RESTING IN BED- PT A&O X3-4, QUIET AND SLOW WITH RESPONSES- INCONT OF B/B, PUREWICK IN PLACE- Q 2HOUR TURNS IN PLACE INDICATED- LCTA, DYSPNEA NOTED ON EXERTION- VSS, O2 SAT 96% ON 2L VIA NC- ABD SOFT/OBESE/NON-TENDER, BS X4 QUADS- BM NOTED THIS AM- RIGHT SUB CLAV DOUBLE LINE NOTED C/D/I WITH LASIX INFUSSING PRESCRIBED- IV ABT GIVEN THIS AM PRESCRIBED- 3 + EDEMA NOTED TO UE, 2-3+ BLE EDEMA NOTED- SIT UP ASSISTANCE REQUIRED WITH MEALS, POOR PO INTAKE NOTED THIS AM WITH BREAKFAST- PT DENIES ANY C/O PAIN THIS AM- CALL LIGHT AND PERSONAL BELONGINGS WITH IN REACH- HOURLY ROUNDS IN PLACE R/T SAFETY/NEEDS- ALL NEEDS MET AT THIS TIME
[2021-11-28 12:00] VITALS: BP 130/56
--- NOTE | 2021-11-28 14:10 | NUR ---
Pt's Bun/Creatin continues to be elevated. Nephrology is starting IV Lasix's and has ordered labs for AM. (Pt came from [facility]). Called Elma from the facility and provided updates and faxed updates to her at: [phone]. Met with spouse Edwin in pt's room and provided updates. CM to continue to follow for discharge planning.
[2021-11-28 16:00] VITALS: BP 126/62
[2021-11-28 20:14] VITALS: BP 117/60
[2021-11-29] VITALS: BP 128/49
[2021-11-29 08:07] VITALS: BP 136/57
[2021-11-29 08:16] LABS: ABSOLUTE BASOPHILS 0.1 thou/uL (0.0-0.2); ABSOLUTE EOSINOPHILS 0.5 thou/uL (0.0-0.7); ABSOLUTE LYMPHOCYTES 2.7 thou/uL (0.8-5.3); ABSOLUTE MONOCYTES 0.6 thou/uL (0.0-1.2); ABSOLUTE NEUTROPHILS 8.3 thou/uL (1.6-8.1); BASOPHILS 0.6 %; EOSINOPHILS 4.3 %; HEMATOCRIT 28.1 % (37.0-47.0); HEMOGLOBIN 8.9 gm/dL (12.0-15.0); LYMPHOCYTES 22.4 %; MCH 26.9 pg (26.0-34.0); MCHC 31.7 g/dL (28.0-37.0); MCV 84.9 fL (80.0-100.0); MONOCYTES 4.7 %; PLATELET COUNT* 220 thou/uL (150-400); RBC 3.31 mil/uL (4.20-5.00); RDW-CV 21.9 % (10.5-14.5); WBC 12.2 thou/uL (4.0-11.0)
--- NOTE | 2021-11-29 08:18 | NUR ---
PT IS ABLE TO COMMUNICATE HER NEEDS TO STAFF EFFECTIVELY. SHE HAS DENIED THE NEED FOR PAIN MEDICATION UP TO 0700 TODAY. SHE DID WEAR HER BIPAP FOR MOST OF ADMINISTRATIVE OFFICE SPECIALIST. PUREWICK UTILIZED WITH SOME DEGREE OF SUCCESS; PT STILL INCONTINENT.
[2021-11-29 08:19] LABS: NUCLEATED RBCS 0 /100WBC
[2021-11-29 08:36] LABS: ALBUMIN 1.8 g/dL (3.4-5.0); CALCIUM 7.1 mg/dL (8.5-10.1); CREATININE 2.5 mg/dL (0.6-1.3); MAGNESIUM 1.9 mg/dL (1.8-2.4); PHOSPHORUS* 4.1 mg/dL (2.5-4.9); POTASSIUM 4.1 mmol/L (3.5-5.1); TOTAL BILIRUBIN 0.4 mg/dL (<0.1-1.0); TOTAL PROTEIN 5.5 g/dL (6.4-8.2)
--- NOTE | 2021-11-29 10:43 | NUR ---
ASSUMED CARE OF PT THIS AM AROUND 0715- JANITORIAL ASSISTANT IN PLACE ORDERED, TRACING SR- PT A&O X4, WITHDRAWN- INCONT OF BOWEL/BLADDER, PUREWICK IN PLACE INDICATED- BED REST IN PLACE WITH Q2 HOURT TURNS- LCTA, DIMINISHED IN BASES- VSS, O2 SAT 96% ON BIPAP THIS AM- RIGHT SUB CLAV DUBBLE LUMEN PICC NOTED C/D/I, IV ABT GIVEN THIS AM PRESCIBED- SET UP ASSIST WITH ENCOURAGEMNET NEEDED FOR MEALS, POOR PO INTAKE NOTED- +3 UE AND 2+ BLE EDEMA NOTED- PT DENIES ANY C/O PAIN- CALL LIGHT AND PESONAL BELONGINGS WITH IN REACH- HOURLY ROUNDS IN PLACE R/T SAFETY/NEEDS-ALL NEEDS MET AT THIS TIME
[2021-11-29 12:00] VITALS: BP 132/60
[2021-11-29] MEDS ORDERED: IPRAT-ALBUT 0.5-3 ML INH (12:33)
[2021-11-29] MEDS ORDERED: PROCARDIA XL30 MG PO (12:33)
[2021-11-29] MEDS ORDERED: MEGESTROL400 MG/11 PO (12:33)
[2021-11-29] MEDS ORDERED: PROTONIX40 M2 PO (12:33)
[2021-11-29] MEDS ORDERED: CARVEDILOL12.5 MG PO (12:33)
[2021-11-29] MEDS ORDERED: BUMETANIDE 1 MG1 M1 PO (12:33)
--- NOTE | 2021-11-29 14:02 | NUR ---
D/c orders were written today for pt to return to the SNF ([facility]) she came from. Upon calling and speaking with facility - this liaison planner has been sending updates - but facility has not mentioned they would not accept her back if she didn't show significant improvement - as we thought she still qualified with needing IV antibiotics. Discussed cost of moth exterminator care $200.00 per day approximately or roughly $6000.00 a month with spouse. He is stating pt has assests - owns her home and part of a farm but nothing that can be liquidated in a day. Spouse is going to speak with pt's brother who is the executor of her estate to see what can be done to assist with paying for moth exterminator care or divison of assests. Attempted to call [facility] but their line has been very busy today. Texted Dr. Lee the situation and that we will be unable to discharge pt today - as we do not have a solution for pt for paying for long-term care. Pt is too debilitated for spouse to take care of at home. CM to continue to follow for discharge planning.
[2021-11-29 16:00] VITALS: BP 114/52
[2021-11-29 20:54] VITALS: BP 139/56
[2021-11-30 02:13] VITALS: BP 124/52
[2021-11-30 05:45] LABS: CALCIUM 7.1 mg/dL (8.5-10.1); CREATININE 2.4 mg/dL (0.6-1.3); POTASSIUM 4.3 mmol/L (3.5-5.1)
[2021-11-30 06:22] VITALS: BP 129/52
[2021-11-30 08:00] VITALS: BP 141/66
--- NOTE | 2021-11-30 08:30 | NUR ---
PT IS ABLE TO COMMUNICATE HER NEEDS TO STAFF EFFECTIVELY. SHE HAS DENIED THE NEED FOR PAIN MEDICATION UP TO 0700 TODAY. PT HAS BEEN HAVING A POOR APPETITE; SHE HAS BEEN ENCOURAGED TO EAT. PUREWICK HAS BEEN UTILIZED WITH SOME SUCCESS; PT IS INCONTINENT. POSSIBLE DISCHARGE TODAY.
[2021-11-30 12:00] VITALS: BP 120/70; BP 126/60
--- NOTE | 2021-11-30 13:08 | NUR ---
Pt came from [facility] ([facility]) - but they felt pt was not progressing enough to accept back for SNF and needed to transition to LTC with Hospice. Elma with [facility] called spouse - Edwin and discussed they currently had no assisted care beds but pt could return to the room she came from at a rate of $281.75 per day until a assisted care bed open on the other unit at a rate of $175.00 a day. Sunshine from [facility] was willing to call spouse and discuss cost of assisted care but was not willing to accept for SNF. Spouse requested that I also send paperwork to [facility] in [place], [place] as the costs are lower their for a terminal supervisor care bed. faxed a referral to [phone]. [facility] has agreed to accept pt for a short SNF stay - to skill her for the remaining IV antibiotics (per original notes from ID - 12/06/21 - however hospitalist wrote a script for 14 more days) to give spouse time to liquidate some assests of spouse to be able to pay for terminal supervisor care. Spouse is agreeable for pt to discharge to [facility] and is aware he will be facing having to transition pt to terminal supervisor care soon. Discussion was made for Hospice - but spouse was not ready for this at this time and wanted pt to completed her IV antibiotics before transitioning to LTC. Final D/C Plan: [facility] - Skilled Level of Care
[2021-11-30 16:00] VITALS: BP 133/51
[2021-11-30 19:43] LABS: CALCIUM 7.2 mg/dL (8.5-10.1); CREATININE 2.3 mg/dL (0.6-1.3); MAGNESIUM 1.8 mg/dL (1.8-2.4); POTASSIUM 4.7 mmol/L (3.5-5.1)
--- NOTE | 2021-11-30 19:56 | NUR ---
ASSUMED PT CARE AT 0730, PT AOX4 AND PREFERS TO BE ON BIPAP BUT WE DID TAKE PT OFF OF BIPAP FOR MEALS AND MEDS. AT APPROX 1330, EMS CAME TO PICK PT UP TO SEND HER TO SNF BUT AFTER WE HAD PT ON 5L HFC FOR ABOUT 10 MINS, HER BREATHING BECAME LABORED AND HER SATS WERE IN THE 70'S, WE BUMPED PT UP TO 15L HFC AND PT ONLY GOT UP TO 88%, I PUT PT BACK ON BIPAP AND CANCELLED DC AND NOTIFIED . PT REMAINED ON BIPAP THROUGHOUT REST OF SHIFT ASIDE FROM GIVING MEDS AND DRINKS, DESTINY WORKED W/ PT, SEE NEW ORDERS.
[2021-11-30 20:00] VITALS: BP 141/57
[2021-12-01] VITALS: BP 134/51
[2021-12-01 04:36] LABS: HEMATOCRIT 23.7 % (37.0-47.0); HEMOGLOBIN 7.6 gm/dL (12.0-15.0); MCH 27.5 pg (26.0-34.0); MCHC 32.3 g/dL (28.0-37.0); MCV 85.1 fL (80.0-100.0); MPV 8.4 fl. (7.2-11.1); NUCLEATED RBCS 0 /100WBC; PLATELET COUNT* 152 thou/uL (150-400); RBC 2.78 mil/uL (4.20-5.00); RDW-CV 22.2 % (10.5-14.5); WBC 5.4 thou/uL (4.0-11.0)
[2021-12-01 05:21] LABS: ALBUMIN 1.9 g/dL (3.4-5.0); CALCIUM 7.2 mg/dL (8.5-10.1); CREATININE 2.4 mg/dL (0.6-1.3); MAGNESIUM 2.3 mg/dL (1.8-2.4); POTASSIUM 5.1 mmol/L (3.5-5.1); TOTAL BILIRUBIN 0.5 mg/dL (<0.1-1.0); TOTAL PROTEIN 5.4 g/dL (6.4-8.2)
--- NOTE | 2021-12-01 06:11 | NUR ---
PT ALERT ORIENTED. PURE WICK IN PLACE. PT REMAINED ON BIPAP THROUGH OUT THE ENTIRE SHIFT. OCCASIONALLY COMING OFF BIPAP FOR DRINKS AND ORAL CARE. CARIDAC MONITOR TRACING SR.
[2021-12-01 07:24] LABS: ABSOLUTE LYMPHOCYTES 0.3 thou/uL (0.8-5.3); ABSOLUTE NEUTROPHILS 5.1 thou/uL (1.6-8.1); PLATELET ESTIMATE DECREASED
[2021-12-01 07:25] LABS: MACROCYTES Occasional
[2021-12-01 07:29] LABS: ANISOCYTOSIS 1+; HYPOCHROMASIA 1+; MICROCYTES Occasional
[2021-12-01 08:00] VITALS: BP 161/66
[2021-12-01 12:08] VITALS: BP 144/74
--- NOTE | 2021-12-01 13:07 | NUR ---
FRANK Loza/[facility] CALLED CM TO INFORM SHE SPK W/PT SPOUSE AND DISCUSSED PRICING OPTIONS IF PT SHOULD RTRN ON HOSPICE, RATES ARE $281.75/DAY TO RTRN TO CURRENT SKILLED BED AND $175/DAY, IF A LTC BED BECAME AVAIL. RONI CONTACTED PT SPOUSE RE DISPO, HE ADVISED CM TO CONTACT "[facility]" AT [place]. [facility] INDICATED THEY ARE ACCEPTING OF PT AND HAVE A BED AVAIL TODAY. PT WILL DC WITH IV, AND O2 AND WILL NEED AMBULANCE TRANSPORT. PT NOT MEDICALLY CLEARED FOR D/C AT THIS TIME, ON CONTINUOUS BIPAP.
[2021-12-01 16:00] VITALS: BP 134/84
[2021-12-01 17:29] LABS: CALCIUM 7.2 mg/dL (8.5-10.1); CREATININE 2.7 mg/dL (0.6-1.3); MAGNESIUM 2.2 mg/dL (1.8-2.4); POTASSIUM 4.8 mmol/L (3.5-5.1)
[2021-12-01 20:00] VITALS: BP 141/56
[2021-12-02] VITALS: BP 111/47
[2021-12-02 04:00] VITALS: BP 132/76
[2021-12-02 05:51] LABS: ABSOLUTE LYMPHOCYTES 0.4 thou/uL (0.8-5.3); ABSOLUTE MONOCYTES 0.1 thou/uL (0.0-1.2); ABSOLUTE NEUTROPHILS 6.2 thou/uL (1.6-8.1); BASOPHILS 0.1 %; EOSINOPHILS 0.1 %; HEMATOCRIT 23.9 % (37.0-47.0); HEMOGLOBIN 7.5 gm/dL (12.0-15.0); LYMPHOCYTES 6.5 %; MCH 27.5 pg (26.0-34.0); MCHC 31.4 g/dL (28.0-37.0); MCV 87.6 fL (80.0-100.0); MONOCYTES 1.8 %; MPV 8.2 fl. (7.2-11.1); NUCLEATED RBCS 0 /100WBC; PLATELET COUNT* 225 thou/uL (150-400); POLYS 91.5 %; RBC 2.73 mil/uL (4.20-5.00); RDW-CV 22.4 % (10.5-14.5); WBC 6.8 thou/uL (4.0-11.0)
[2021-12-02 06:14] LABS: ALBUMIN 2.7 g/dL (3.4-5.0); CALCIUM 7.3 mg/dL (8.5-10.1); CREATININE 3.1 mg/dL (0.6-1.3); MAGNESIUM 2.3 mg/dL (1.8-2.4); POTASSIUM 5.6 mmol/L (3.5-5.1); TOTAL BILIRUBIN 0.3 mg/dL (<0.1-1.0)
[2021-12-02 08:31] VITALS: BP 118/61
[2021-12-02 11:45] LABS: BE -11.5 mmol/L (-2 to +3); PCO2 VENOUS 73.2 mmHg (41.0-51.0); PO2 VENOUS 46.6 mmHg (35.0-45.0)
[2021-12-02 13:28] VITALS: BP 104/49
--- NOTE | 2021-12-02 14:10 | NUR ---
UPON ASSUMING CARE OF PT THIS AM PT NOTED TO BE SEDATED/SOMMULENT, AGONAL BREATHING NOTED ON BIPAP- SR ON MONITOR NOTED- NOTIFIED AND ORDERS NOTED FOR ABG AND LACTIC WITH RESULTS NOTED- FAMILY UNABLE TO MAKE DECISION ON LIFE SUSTAINING CHOICES AND PT WAS MOVED TO ICU FOR BRIEF TIME FOR PLANS TO INTUBATE AROUND 1210- PT THEN MADE DECISSION TO MAKE PT COMFORT CARE AND DID NOT WANT PT TO BE INTUBATED, SO PT MOVED BACK TO ROOM 203- COMFORT CARE ORDERS HAVE BEEN INITIATED ORDERED AND BIAP REMOVED OF 1410- PT AT SIDE AND SPIRATUL CARE AT SIDE VISITING- ALL NEEDS MET AT THIS TIME
== END 2021-12-02 14:20 | DRG 871 ==
LOC: M.ERS 16:40 → M.TBA-ER 18:27 → M.2W 11-23 17:59 → M.ICU 12-02 11:55 → M.2W 12-02 12:32
PROVIDERS: Internal Medicine; Internal Medicine Critical Care Medicine; Internal Medicine Nephrology; Physician Assistant; ADMIT Internal Medicine; ATTEND Internal Medicine
PROC: 5A09457 Assistance with Respiratory Ventilation, 24-96 Consecutive Hours, Continuous Positive Airway Pressure (ICD-10-PCS; principal; 2021-11-22)
PROC: 5A09357 Assistance with Respiratory Ventilation, Less than 24 Consecutive Hours, Continuous Positive Airway Pressure (ICD-10-PCS; 2021-11-25)
PROC: 5A09357 Assistance with Respiratory Ventilation, Less than 24 Consecutive Hours, Continuous Positive Airway Pressure (ICD-10-PCS; 2021-11-26)
PROC: 5A09357 Assistance with Respiratory Ventilation, Less than 24 Consecutive Hours, Continuous Positive Airway Pressure (ICD-10-PCS; 2021-11-27)
PROC: 5A09357 Assistance with Respiratory Ventilation, Less than 24 Consecutive Hours, Continuous Positive Airway Pressure (ICD-10-PCS; 2021-11-28)
PROC: 5A09357 Assistance with Respiratory Ventilation, Less than 24 Consecutive Hours, Continuous Positive Airway Pressure (ICD-10-PCS; 2021-11-30)
PROC: 5A09357 Assistance with Respiratory Ventilation, Less than 24 Consecutive Hours, Continuous Positive Airway Pressure (ICD-10-PCS; 2021-12-01)
PROC: 05HY33Z Insertion of Infusion Device into Upper Vein, Percutaneous Approach (ICD-10-PCS; 2021-12-01)
DX: A41.81 Sepsis due to Enterococcus (principal); J96.01 Acute respiratory failure with hypoxia; E43 Unspecified severe protein-calorie malnutrition; I50.23 Acute on chronic systolic (congestive) heart failure; N17.9 Acute kidney failure, unspecified; I13.0 Hypertensive heart and chronic kidney disease with heart failure and stage 1 through stage 4 chronic kidney disease, or unspecified chronic kidney disease; Z20.822 Contact with and (suspected) exposure to COVID-19; E89.0 Postprocedural hypothyroidism; E78.5 Hyperlipidemia, unspecified; N18.9 Chronic kidney disease, unspecified; E88.09 Other disorders of plasma-protein metabolism, not elsewhere classified; D64.9 Anemia, unspecified; I35.0 Nonrheumatic aortic (valve) stenosis; E87.70 Fluid overload, unspecified; R80.9 Proteinuria, unspecified; Z88.1 Allergy status to other antibiotic agents; Z88.8 Allergy status to other drugs, medicaments and biological substances; Z68.32 Body mass index [BMI] 32.0-32.9, adult; R62.7 Adult failure to thrive; Z51.5 Encounter for palliative care